=== PATIENT | male | born 1950 | race Caucasian/White ===

== ENCOUNTER → 2016-08-29 | Outpatient (CLI) | payer BC ==
[~2016-08-29] MED LIST: ASPEC325 PO; CLOP1TAB15 PO; CRS10 PO; DLC5 PO; Fish Oil; HYDC25 PO; LISI-725 PO; MULTIPLE VIT; NTRGSL/4 UT; ZNTT/150 PO; [UNRECOGNIZED DRUG - REMARK]; co q 10
[2016-08-29 11:31] LABS: ESTIMATED AVERAGE GLUCOSE 117 mg/dl; HA1C FLAG Normal (Normal)
[2016-08-29 11:41] LABS: ALT/SGPT 35 U/L (12-78); AST/SGOT 20 U/L (15-37); BLOOD UREA NITROGEN 18 mg/dl (7-18); BUN/CREATININE RATIO 17.8 (10-20); CALCIUM 8.7 mg/dl (8.5-10.1); CARBON DIOXIDE 29 mmol/L (21-32); CHLORIDE 104 mmol/L (98-107); CHOLESTEROL 145 mg/dl (0-200); GLUCOSE 106 mg/dl (70-99); POTASSIUM 4.2 mmol/L (3.5-5.1); SODIUM 139 mmol/L (136-145)
[2016-08-29 11:46] LABS: CHOLESTEROL/HDL RATIO 3.2; HDL CHOLESTEROL 46 mg/dl; LDL CHOLESTEROL CALCULATED 87 mg/dl; PROSTATE SPECIFIC ANTIGEN 0.313 ng/ml (0.000-4.000); TRIGLYCERIDES 62 mg/dl (0-150); VERY LOW DENSITY LIPOPROT CALC 12 mg/dl
== END | disposition home or self-care (01) ==
LOC: C.LABBC 07:33
PROVIDERS: ATTEND Internal Medicine Cardiovascular Disease
DX: Z11.59 Encounter for screening for other viral diseases (principal); Z12.5 Encounter for screening for malignant neoplasm of prostate; E78.5 Hyperlipidemia, unspecified; R73.01 Impaired fasting glucose; I10 Essential (primary) hypertension

== ENCOUNTER → 2017-03-08 | Outpatient (CLI) | payer BC | END | disposition home or self-care (01) | LOC: C.LABBC 09:19 | PROVIDERS: ATTEND Internal Medicine Cardiovascular Disease | DX: E78.5 Hyperlipidemia, unspecified (principal) ==

== ENCOUNTER → 2017-08-27 | Outpatient (CLI) | payer OTHER ==
[~2017-08-27] MED LIST changes: +RANI150T85 PO; -ZNTT/150 PO
[2017-08-27 11:33] LABS: ALT/SGPT 37 U/L (12-78); AST/SGOT 23 U/L (15-37); BLOOD UREA NITROGEN 16 mg/dl (7-18); CARBON DIOXIDE 29 mmol/L (21-32); CREATININE 0.95 mg/dl (0.60-1.40); GLUCOSE 112 mg/dl (70-99); SODIUM 137 mmol/L (136-145)
[2017-08-27 11:36] LABS: CHOLESTEROL 138 mg/dl (0-200); LDL CHOLESTEROL CALCULATED 76 mg/dl
== END | disposition home or self-care (01) ==
LOC: C.LABBC 07:12
PROVIDERS: ATTEND Internal Medicine Cardiovascular Disease
DX: E78.5 Hyperlipidemia, unspecified (principal); I10 Essential (primary) hypertension

== ENCOUNTER → 2017-12-18 | Outpatient (CLI) | payer OTHER ==
[2017-12-18 11:08] LABS: BASO % 0.6 %; BASO ABS # 0.03 K/uL (0-0.2); EOS % 2.5 %; EOS ABS # 0.13 K/uL (0-0.5); HEMATOCRIT 40.4 % (42-52); HEMOGLOBIN 14.2 g/dL (14.0-18.0); IG# 0.01 K/uL (0.00-0.02); LYMPH % 15.9 %; LYMPH ABS # 0.82 K/uL (1.2-3.4); MEAN CELL VOLUME 88.6 fL (80-100); MEAN CORPUSCULAR HEMOGLOBIN 31.1 pg (25-34); MEAN CORPUSCULAR HGB CONC 35.1 g/dl (32-36); MEAN PLATELET VOLUME 10.9 fL (7.4-10.4); MONO % 9.9 %; MONO ABS # 0.51 K/uL (0.11-0.59); NEUT % 70.9 %; NEUT ABS # 3.65 K/uL (1.4-6.5); PLATELET COUNT 174 K/uL (130-400); RED CELL DISTRIBUTION WIDTH CV 12.8 % (11.5-14.5); RED CELL DISTRIBUTION WIDTH SD 41.2 fL (36.4-46.3); WHITE BLOOD COUNT 5.15 K/uL (4.8-10.8)
[2017-12-18 12:12] LABS: HEMOGLOBIN A1C 5.8 % (4.5-5.6)
== END | disposition home or self-care (01) ==
LOC: C.LABBC 09:10
PROVIDERS: ATTEND Internal Medicine
DX: F52.8 Other sexual dysfunction not due to a substance or known physiological condition (principal); R73.01 Impaired fasting glucose; E78.5 Hyperlipidemia, unspecified

== ENCOUNTER 2017-12-29 18:39 | Inpatient (IN) | payer OTHER ==
[~2017-12-29] VITALS: Ht 177.8 cm; Wt 73.4 kg
[2017-12-29 19:27] LABS: BASO % 0.4 %; BASO ABS # 0.02 K/uL (0-0.2); EOS % 2.6 %; EOS ABS # 0.14 K/uL (0-0.5); HEMATOCRIT 40.6 % (42-52); HEMOGLOBIN 14.5 g/dL (14.0-18.0); IG# 0.01 K/uL (0.00-0.02); LYMPH % 18.5 %; LYMPH ABS # 1.01 K/uL (1.2-3.4); MEAN CELL VOLUME 87.5 fL (80-100); MEAN CORPUSCULAR HEMOGLOBIN 31.3 pg (25-34); MEAN CORPUSCULAR HGB CONC 35.7 g/dl (32-36); MEAN PLATELET VOLUME 10.5 fL (7.4-10.4); MONO % 10.1 %; MONO ABS # 0.55 K/uL (0.11-0.59); NEUT % 68.2 %; NEUT ABS # 3.74 K/uL (1.4-6.5); PLATELET COUNT 176 K/uL (130-400); RED CELL DISTRIBUTION WIDTH CV 12.5 % (11.5-14.5); RED CELL DISTRIBUTION WIDTH SD 40.1 fL (36.4-46.3); WHITE BLOOD COUNT 5.47 K/uL (4.8-10.8)
[2017-12-29] MEDS ORDERED: CARV12.52 PO (19:38)
[2017-12-29] MEDS ORDERED: HYDR25TA4 PO (19:41)
[2017-12-29] MEDS ORDERED: AMLO5TAB3 PO (19:42)
[2017-12-29] MEDS ORDERED: COEN1CAP37 PO (19:44)
[2017-12-29] MEDS ORDERED: ASCO500T16 PO (19:46)
[2017-12-29 19:47] LABS: BLOOD UREA NITROGEN 13 mg/dl (7-18); CALCIUM 9.2 mg/dl (8.5-10.1); CARBON DIOXIDE 27 mmol/L (21-32); CREATININE 0.98 mg/dl (0.60-1.40); GLUCOSE 116 mg/dl (70-99); POTASSIUM 3.8 mmol/L (3.5-5.1); SODIUM 134 mmol/L (136-145)
[2017-12-29] MEDS ORDERED: RESV1TAB PO (19:48)
[2017-12-29] MEDS ORDERED: CRS/10 PO (19:49)
[2017-12-29] MEDS ORDERED: ASPI81TA28 PO (19:50)
[2017-12-29] MEDS ORDERED: [UNRECOGNIZED DRUG - OTHER] PO (19:54)
[2017-12-29] MEDS ORDERED: CIRCUMIN (19:56)
[2017-12-29] MEDS ORDERED: MISC1TAB34 PO (19:57)
[2017-12-29] MEDS ORDERED: MISCCAP80 PO (19:59)
[2017-12-29] MEDS ORDERED: GADAVIST IV PRN (20:45)
--- NOTE | 2017-12-29 20:47 | DIAGNOSTIC IMAGING REPORT ---
Brain MRA HISTORY: slurred speech earlier, ?tia/stroke TECHNIQUE: 3-D [id number] MRA of the brain was performed without contrast. COMPARISON STUDY: None. FINDINGS: Visualized intracranial internal carotid arteries, distal vertebral arteries, and basilar artery are widely patent. There is no significant stenosis, occlusion, or aneurysm seen within the bilateral ACAs, MCAs, or maintenance director. Hypoplastic distal right vertebral artery. IMPRESSION: No significant stenosis, occlusion, or aneurysm within the [place]. Electronically signed by: Tee Faye M.D. 12/29/2017 8:45 PM Dictated Date/Time: 12/29/2017 8:39 PM
--- NOTE | 2017-12-29 21:31 | DIAGNOSTIC IMAGING REPORT ---
Brain MRI WITHOUT CONTRAST HISTORY: slurred speech earlier, ?tia/stroke TECHNIQUE: Multiplanar multisequence MRI of the brain was performed without the use of contrast. COMPARISON STUDY: None. FINDINGS: There is a small focus of restricted diffusion seen within the cortex of the left posterior temporal lobe. This is consistent with an acute infarct. There is associated small focus of cytotoxic edema at the area of infarct. No significant mass effect or midline shift. A few scattered punctate foci of T2 hyperintensity seen within the white matter suggestive of mild microvascular ischemic change. The midline structures are intact. The paranasal sinuses and mastoid air cells are clear. The major vascular flow-voids at the skull base are well-maintained. The ventricles are normal in size. No intracranial masses or hemorrhage identified. IMPRESSION: Small acute left posterior temporal lobe infarct. Electronically signed by: Tee Faye M.D. 12/29/2017 9:30 PM Dictated Date/Time: 12/29/2017 9:25 PM
--- NOTE | 2017-12-29 21:38 | DIAGNOSTIC IMAGING REPORT ---
NECK MRA HISTORY: slurred speech earlier, ?tia/stroke TECHNIQUE: [id number] and gadolinium-enhanced MRA of the neck was performed both before and after the intravenous administration of contrast. All measurements were calculated based on NASCET criteria. COMPARISON STUDY: None. FINDINGS: The aortic arch and proximal great vessels are widely patent. Bilateral common carotid and left vertebral arteries are widely patent. The right vertebral artery is hypoplastic and therefore suboptimally assessed but appears to be patent. Moderate right and mild left carotid bifurcation calcification. There is a focal area of approximately 70-80% stenosis within the proximal right internal carotid artery and a focal area of approximately 60-70 % stenosis within the proximal left internal carotid artery due to the atherosclerotic plaque. IMPRESSION: 1. Bilateral proximal internal carotid artery stenosis as described above, right greater than left. 2. No significant stenosis within the common carotid or vertebral arteries. Electronically signed by: Tee Faye M.D. 12/29/2017 9:37 PM Dictated Date/Time: 12/29/2017 9:31 PM
--- NOTE | 2017-12-29 21:41 | EMERGENCY ROOM VISIT NOTE ---
History Report prepared by Savi: Jacinda Ivey Under the Supervision of: Dr. Kaushik Vences M.D. First contact with patient: 18:47 Chief Complaint: TIA Stated Complaint: CONFUSSION History of Present Illness The patient is a 67 year old male who presents to the Emergency Room with complaints of a possible TIA that occurred this morning. 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 As he was talking with James, he felt like he was having difficulty "grasping things" and said some things "that didn't make sense". He states "I knew what I wanted to say, but I couldn't express it". The episode lasted for approximately 3 hours and started around 0730 this morning. The patient then drove around doing several errands early this afternoon since he felt better. He denies any numbness or tingling in his extremities. The patient denies any recent fevers or illnesses. He admits to a history of anxiety and states he took 1 mg of Ativan last night and woke up feeling fatigued this morning. He admits to a history of a previous [facility] and hypertension. He denies any recent headache or dizziness. Source of History: patient Onset: 0730 this morning Position: other (global) Timing: resolved Associated Symptoms: + fatigue, No fevers, No headache, No numbness (in arms or legs) Review of Systems See HPI for pertinent positives and negatives. A total of ten systems were reviewed and were otherwise negative. Past Medical & Surgical Medical Problems: (1) Anxiety Surgical Problems: (1) History of heart artery stent Social History Smoking Status: Never Smoker Alcohol Use: none Drug Use: none Marital Status: Housing Status: lives with family Occupation Status: employed Current/Historical Medications Scheduled Amlodipine (Norvasc), 5 MG PO DAILY Ascorbic Acid (Ascorbic Acid), 500 MG PO DAILY Aspirin (Aspirin Ec), 81 MG PO DAILY Carvedilol (Coreg), 12.5 MG PO BID Coenzyme Q10 (Ubidecarenone) (Co Q-10), 200 MG PO DAILY Hydrochlorothiazide (Hctz), 25 MG PO DAILY Lisinopril (Zestril), 20 MG PO BID Misc Natural Products (Curcumax Pro), 675 MG PO DAILY Probiotic Product (Probiotic), 1 CAP PO DAILY Ranitidine (Zantac), 150 MG PO BID Resveratrol-Quercetin (Resveratrol Plus), 200 MG PO HS Rosuvastatin Calcium (Crestor), 10 MG PO DAILY [[place]], 1,000 MG PO DAILY Allergies Coded Allergies: No Known Allergies (Unverified , 01/23/11) Physical Exam Vital Signs Date Time Temp Pulse Resp B/P (MAP) Pulse Ox O2 Delivery O2 Flow Rate FiO2 12/29/17 21:10 72 18 172/91 99 Room Air 12/29/17 19:00 99 Room Air 12/29/17 18:57 64 12/29/17 18:43 36.6 58 18 187/104 99 Physical Exam GENERAL: Awake, alert, well-appearing, in no distress HENT: Normocephalic, atraumatic. Oropharynx unremarkable. EYES: Normal conjunctiva. Sclera non-icteric. NECK: Supple. No nuchal rigidity. RESPIRATORY: Clear to auscultation. No wheezes. Normal respiratory effort. CARDIAC: Normal rate. Normal rhythm. Extremities warm and well perfused. GI: Soft, non-distended. No tenderness to palpation. No rebound or guarding. RECTAL: Deferred. MUSCULOSKELETAL: Atraumatic. Chest examination reveals no tenderness. LOWER EXTREMITIES: Calves are equal size bilaterally and non-tender. No edema NEURO: Normal sensorium. No sensory or motor deficits noted. No facial droop. No slurred speech. No pronator drift. NIH 0. SKIN: Warm and dry. No rash or jaundice noted. Medical Decision & Procedures ER Provider Diagnostic Interpretation: Radiology results as stated below per my review and radiologist interpretation: Brain MRI WITHOUT CONTRAST HISTORY: slurred speech earlier, ?tia/stroke TECHNIQUE: Multiplanar multisequence MRI of the brain was performed without the use of contrast. COMPARISON STUDY: None. FINDINGS: There is a small focus of restricted diffusion seen within the cortex of the left posterior temporal lobe. This is consistent with an acute infarct. There is associated small focus of cytotoxic edema at the area of infarct. No significant mass effect or midline shift. A few scattered punctate foci of T2 hyperintensity seen within the white matter suggestive of mild microvascular ischemic change. The midline structures are intact. The paranasal sinuses and mastoid air cells are clear. The major vascular flow-voids at the skull base are well-maintained. The ventricles are normal in size. No intracranial masses or hemorrhage identified. IMPRESSION: Small acute left posterior temporal lobe infarct. Electronically signed by: Tee Faye M.D. 12/29/2017 9:30 PM Brain MRA HISTORY: slurred speech earlier, ?tia/stroke TECHNIQUE: 3-D [id number] MRA of the brain was performed without contrast. COMPARISON STUDY: None. FINDINGS: Visualized intracranial internal carotid arteries, distal vertebral arteries, and basilar artery are widely patent. There is no significant stenosis, occlusion, or aneurysm seen within the bilateral ACAs, MCAs, or manager registration. Hypoplastic distal right vertebral artery. IMPRESSION: No significant stenosis, occlusion, or aneurysm within the [place]. Electronically signed by: Tee Faye M.D. 12/29/2017 8:45 PM NECK MRA HISTORY: slurred speech earlier, ?tia/stroke TECHNIQUE: [id number] and gadolinium-enhanced MRA of the neck was performed both before and after the intravenous administration of contrast. All measurements were calculated based on NASCET criteria. COMPARISON STUDY: None. FINDINGS: The aortic arch and proximal great vessels are widely patent. Bilateral common carotid and left vertebral arteries are widely patent. The right vertebral artery is hypoplastic and therefore suboptimally assessed but appears to be patent. Moderate right and mild left carotid bifurcation calcification. There is a focal area of approximately 70-80% stenosis within the proximal right internal carotid artery and a focal area of approximately 60-70 % stenosis within the proximal left internal carotid artery due to the atherosclerotic plaque. IMPRESSION: 1. Bilateral proximal internal carotid artery stenosis as described above, right greater than left. 2. No significant stenosis within the common carotid or vertebral arteries. Electronically signed by: Tee Faye M.D. 12/29/2017 9:37 PM Laboratory Results 12/29/17 19:00 Red Blood Count 4.64, Mean Corpuscular Volume 87.5, Mean Corpuscular Hemoglobin 31.3, Mean Corpuscular Hemoglobin Concent 35.7, Mean Platelet Volume 10.5, Neutrophils (%) (Auto) 68.2, Lymphocytes (%) (Auto) 18.5, Monocytes (%) (Auto) 10.1, Eosinophils (%) (Auto) 2.6, Basophils (%) (Auto) 0.4, Neutrophils # (Auto ) 3.74, Lymphocytes # (Auto) 1.01, Monocytes # (Auto) 0.55, Eosinophils # (Auto ) 0.14, Basophils # (Auto) 0.02 12/29/17 19:00 Test 12/29/17 19:00 12/29/17 19:16 White Blood Count 5.47 K/uL (4.8-10.8) Red Blood Count 4.64 M/uL (4.7-6.1) Hemoglobin 14.5 g/dL (14.0-18.0) Hematocrit 40.6 % (42-52) Mean Corpuscular Volume 87.5 fL (80-100) Mean Corpuscular Hemoglobin 31.3 pg (25-34) Mean Corpuscular Hemoglobin Concent 35.7 g/dl (32-36) Platelet Count 176 K/uL (130-400) Mean Platelet Volume 10.5 fL (7.4-10.4) Neutrophils (%) (Auto) 68.2 % Lymphocytes (%) (Auto) 18.5 % Monocytes (%) (Auto) 10.1 % Eosinophils (%) (Auto) 2.6 % Basophils (%) (Auto) 0.4 % Neutrophils # (Auto) 3.74 K/uL (1.4-6.5) Lymphocytes # (Auto) 1.01 K/uL (1.2-3.4) Monocytes # (Auto) 0.55 K/uL (0.11-0.59) Eosinophils # (Auto) 0.14 K/uL (0-0.5) Basophils # (Auto) 0.02 K/uL (0-0.2) RDW Standard Deviation 40.1 fL (36.4-46.3) RDW Coefficient of Variation 12.5 % (11.5-14.5) Immature Granulocyte % (Auto) 0.2 % Immature Granulocyte # (Auto) 0.01 K/uL (0.00-0.02) Prothrombin Time 10.3 SECONDS (9.0-12.0) Prothromb Time International Ratio 1.0 (0.9-1.1) Activated Partial Thromboplast Time 22.0 SECONDS (21.0-31.0) Partial Thromboplastin Ratio 0.8 Anion Gap 7.0 mmol/L (3-11) Est Creatinine Clear Calc Drug Dose 76.6 ml/min Estimated GFR () 92.7 Estimated GFR (Non- 80.0 BUN/Creatinine Ratio 13.3 (10-20) Calcium Level 9.2 mg/dl (8.5-10.1) Magnesium Level 1.9 mg/dl (1.8-2.4) Total Creatine Kinase 159 U/L (39-308) Troponin I < 0.015 ng/ml (0-0.045) Bedside Glucose 120 mg/dl (70-99) Laboratory results reviewed by me ECG Per My Interpretation Indication: weakness Rate (beats per minute): 63 Rhythm: normal sinus Findings: RBBB (incomplete RBBB), other (No ST elevation) Comparison ECG Date: Improved T-wave abnormality compared to EKG from July 19, 2011 ED Course 1846: The patient was evaluated in room A10. A complete history and physical exam was performed. 2134: I discussed with the patient MRI findings of stroke and my recommendation he remain in the hospital for further evaluation and management. He verbalized complete understanding and agreement. 2139: [facility] the [facility] The patient will be further evaluated. Medical Decision Triage Nursing notes reviewed. The patient's presentation and history were concerning for weakness. Differential diagnosis: Etiologies such as metabolic, infection, hypo/hyperglycemia, electrolyte abnormalities, cardiac sources, intracerebral event, toxicologic, neurologic, as well as others were entertained. 67-year-old gentleman who presents here today after dysarthria and aphasia this morning lasting approximately 3 hours. No other neurological complaint. At baseline now. Took some Ativan last night for sleep, but woke up fine this morning. Again no neurological deficits at this time. Already on aspirin. Concerns for possible TIA. Given lack of symptoms not a TPA candidate. Not a stroke alert. Given resolution of symptoms MRI and needed. MRA without vessel occlusion. MRI with small left posterior temporal stroke likely the cause of his early dysphasia/aphasia. Discussed with the hospitalist and the patient these results. Will admit. Already takes aspirin. Again no deficits at this time. Medication Reconcilliation Current Medication List: was personally reviewed by me Blood Pressure Screening Patient's blood pressure: Elevated blood pressure Blood pressure disposition: Referred to PCP Consults Time Called: 2139 [facility] Returned Call: 2139 I discussed the patients case with Odette Leavitt Hospitalist. The patient will be further evaluated. Impression Primary Impression: Stroke Scribe Attestation The scribe's documentation has been prepared under my direction and personally reviewed by me in its entirety. I confirm that the note above accurately reflects all work, treatment, procedures, and medical decision making performed by me. Departure Information Dispostion Being Evaluated By Hospitalist Referrals Frederic Lira M.D. (PCP) Patient Instructions My [facility] Problem Qualifiers Primary Impression: Stroke CVA mechanism: unspecified Qualified Codes: I63.9 - Cerebral infarction, unspecified
--- NOTE | 2017-12-29 21:43 | History and Physical ---
History & Physical Date & Time of Service: Dec 29, 2017 at 21:41 Chief Complaint: Confussion Primary Care Physician: Frederic Lira M.D. History of Present Illness Source: patient, family Mr. Carroll is a pleasant 67yo male with history of HTN, CAD s/p MS in 01/2011 with stent placement and anxiety presenting with stroke-like symptoms. Patient states that at 0730 today he was at work at a [employer]. He states that he was "unable to pull his thoughts together and speak clearly". He knew what he wanted to say but was having some difficulty word finding and expressing himself. Also with some difficulty hearing, unsure of which ear. He was with a coworker at this time who denies patient having slurred speech, facial droop. 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 He states that his symptoms improved somewhat by 0815 and resolved completely by approximately 11:30AM. Patient denies headache, visual disturbance, numbness/tingling/weakness, dizziness, LOC. Denies chest pain, cough, sob, abdominal pain, n/v/d/c. He states that he was very tired when he woke up this morning but that is not entirely unusual. is at bedside and states that the patient is more anxious than usual and still seems like his thoughts are a little scattered. No additional complaints at this time. ER Course: MRI brain, MRA head and neck Past Medical/Surgical History Medical Problems: CAD s/p MS in 01/2011 s/p DOROTHEA to LAD by Dr. Shelley Hypertension Anxiety GERD BPH Surgical Problems: (1) History of heart artery stent (DOROTHEA to LAD 01/[address] Shelley) Family History FH: CAD (coronary artery disease) FH: dementia Social History active and independent in ADLs. Patient is physically active, uses treadmill appx 3-4 days/week and does strength training as well Smoking Status: Former Smoker Smokeless Tobacco Use: No Alcohol Use: none Drug Use: none Marital Status: Housing status: lives with family Occupational Status: employed Immunizations History of Influenza Vaccine: No History of Tetanus Vaccine?: No History of Pneumococcal: No History of Hepatitis B Vaccine: No Allergies Coded Allergies: No Known Allergies (Unverified , 01/23/11) Home Medications Scheduled Amlodipine (Norvasc), 5 MG PO DAILY Ascorbic Acid (Ascorbic Acid), 500 MG PO DAILY Aspirin (Aspirin Ec), 81 MG PO DAILY Carvedilol (Coreg), 12.5 MG PO BID Coenzyme Q10 (Ubidecarenone) (Co Q-10), 200 MG PO DAILY Hydrochlorothiazide (Hctz), 25 MG PO DAILY Lisinopril (Zestril), 20 MG PO BID Misc Natural Products (Curcumax Pro), 675 MG PO DAILY Probiotic Product (Probiotic), 1 CAP PO DAILY Ranitidine (Zantac), 150 MG PO BID Resveratrol-Quercetin (Resveratrol Plus), 200 MG PO HS Rosuvastatin Calcium (Crestor), 10 MG PO DAILY [[place]], 1,000 MG PO DAILY Review of Systems Constitutional: No fever, No chills, No sweats Eyes: No worsening of vision, No diplopia ENT: No hearing loss, No trouble swallowing Respiratory: No cough, No sputum, No shortness of breath Cardiovascular: No chest pain, No palpitations Abdomen: No pain, No nausea, No vomiting, No diarrhea, No constipation Musculoskeletal: No joint pain Genitourinary - Male: No hematuria, No dysuria Neurologic: No paralysis, No weakness, No numbness/tingling, No vertigo, No balance problems Psychiatric: + anxiety Endocrine: + fatigue Hematologic / Lymphatic: No abnormal bleeding/bruising Integumentary: No rash Physical Exam Vital Signs Date Time Temp Pulse Resp B/P (MAP) Pulse Ox O2 Delivery O2 Flow Rate FiO2 12/29/17 21:10 72 18 172/91 99 Room Air 12/29/17 19:00 99 Room Air 12/29/17 18:57 64 12/29/17 18:43 36.6 58 18 187/104 99 General: patient resting comfortably in bed, NAD, AA&O x 4, appears slightly anxious Skin: warm, dry, intact, no rashes or lesions HEENT: NC/AT, PERRL, EOMI, anicteric sclera, conjunctiva without injection, nares patent, moist mucus membranes, no oropharyngeal lesions, neck supple, trachea midline, no thyromegaly, no LAD Heart: +S1/S2, regular, no m/r/g Lungs: equal air entry bilaterally, no rales/rhonchi/wheezes Abdomen: soft, NT/ND, no masses/organomegaly/ascites Extremities: warm, well perfused, no clubbing/cyanosis or edema, 2+ palpable pulses in UE/LE bilaterally Neuro: Patient AA&O x 4, speech clear and fluent, no facial droop. CN II-XII grossly intact Sensation to light touch intact in UE/LE bilaterally MS 5/5 in UE/LE bilaterally, no deficits noted Coordination intact UE/LE with finger to nose and heel to melchor Gait intact Diagnostics Laboratory Results Results Past 24 Hours Test 12/29/17 19:00 12/29/17 19:16 Range/Units White Blood Count 5.47 4.8-10.8 K/uL Red Blood Count 4.64 4.7-6.1 M/uL Hemoglobin 14.5 14.0-18.0 g/dL Hematocrit 40.6 42-52 % Mean Corpuscular Volume 87.5 80-100 fL Mean Corpuscular Hemoglobin 31.3 25-34 pg Mean Corpuscular Hemoglobin Concent 35.7 32-36 g/dl Platelet Count 176 130-400 K/uL Mean Platelet Volume 10.5 7.4-10.4 fL Neutrophils (%) (Auto) 68.2 % Lymphocytes (%) (Auto) 18.5 % Monocytes (%) (Auto) 10.1 % Eosinophils (%) (Auto) 2.6 % Basophils (%) (Auto) 0.4 % Neutrophils # (Auto) 3.74 1.4-6.5 K/uL Lymphocytes # (Auto) 1.01 1.2-3.4 K/uL Monocytes # (Auto) 0.55 0.11-0.59 K/uL Eosinophils # (Auto) 0.14 0-0.5 K/uL Basophils # (Auto) 0.02 0-0.2 K/uL RDW Standard Deviation 40.1 36.4-46.3 fL RDW Coefficient of Variation 12.5 11.5-14.5 % Immature Granulocyte % (Auto) 0.2 % Immature Granulocyte # (Auto) 0.01 0.00-0.02 K/uL Prothrombin Time 10.3 9.0-12.0 SECONDS Prothromb Time International Ratio 1.0 0.9-1.1 Activated Partial Thromboplast Time 22.0 21.0-31.0 SECONDS Partial Thromboplastin Ratio 0.8 Sodium Level 134 136-145 mmol/L Potassium Level 3.8 3.5-5.1 mmol/L Chloride Level 100 98-107 mmol/L Carbon Dioxide Level 27 21-32 mmol/L Anion Gap 7.0 3-11 mmol/L Blood Urea Nitrogen 13 7-18 mg/dl Creatinine 0.98 0.60-1.40 mg/dl Est Creatinine Clear Calc Drug Dose 76.6 ml/min Estimated GFR () 92.7 Estimated GFR (Non- 80.0 BUN/Creatinine Ratio 13.3 10-20 Random Glucose 116 70-99 mg/dl Calcium Level 9.2 8.5-10.1 mg/dl Magnesium Level 1.9 1.8-2.4 mg/dl Total Creatine Kinase 159 39-308 U/L Troponin I < 0.015 0-0.045 ng/ml Bedside Glucose 120 70-99 mg/dl Diagnostic Radiology Brain MRI WITHOUT CONTRAST HISTORY: slurred speech earlier, ?tia/stroke TECHNIQUE: Multiplanar multisequence MRI of the brain was performed without the use of contrast. COMPARISON STUDY: None. FINDINGS: There is a small focus of restricted diffusion seen within the cortex of the left posterior temporal lobe. This is consistent with an acute infarct. There is associated small focus of cytotoxic edema at the area of infarct. No significant mass effect or midline shift. A few scattered punctate foci of T2 hyperintensity seen within the white matter suggestive of mild microvascular ischemic change. The midline structures are intact. The paranasal sinuses and mastoid air cells are clear. The major vascular flow-voids at the skull base are well-maintained. The ventricles are normal in size. No intracranial masses or hemorrhage identified. IMPRESSION: Small acute left posterior temporal lobe infarct. Electronically signed by: Tee Faye M.D. 12/29/2017 9:30 PM Brain MRA HISTORY: slurred speech earlier, ?tia/stroke TECHNIQUE: 3-D [id number] MRA of the brain was performed without contrast. COMPARISON STUDY: None. FINDINGS: Visualized intracranial internal carotid arteries, distal vertebral arteries, and basilar artery are widely patent. There is no significant stenosis, occlusion, or aneurysm seen within the bilateral ACAs, MCAs, or supervisor home energy consultant. Hypoplastic distal right vertebral artery. IMPRESSION: No significant stenosis, occlusion, or aneurysm within the [place]. Electronically signed by: Tee Faye M.D. 12/29/2017 8:45 PM Dictated Date/Time: 12/29/2017 8:39 PM EKG The study shows NSR at 63bpm, normal axis and intervals, no acute evidence of ischemia Impression Assessment and Plan 67yo male with history of HTN, CAD s/p stent presenting with 3-4 hours of aphasia now resolved found with small acute left posterior temporal ischemic CVA 1. Ischemic CVA - patient with history of HTN, CAD. Presently symptoms have resolved per patient, neurologically intact -Admit to medical floor with telemetry -Neuro checks q 4 hours -Permissive hypertension -Check 2D echocardiogram with bubble study -Check HgAIC, fasting lipids -Neurology consultation- appreciate assistance with this case -PT/OT/Speech evaluation - appreciate assistance with this case -ASA 325mg po x 1 dose now then 81mg po daily. Patient may benefit from treatment with Aggrenox. Will defer to Neuro recommendations -Increase Crestor to 40mg po daily 2. CAD s/p DOROTHEA [place] LAD [place] [address] Shelley - patient presently CP free. EKG with no evidence of ischemia. Troponin x 1 negative -Telemetry monitoring as above -Continue ASA daily -Increase Crestor to 40mg po daily -Hold Carvedilol and Lisinopril now to allow for permissive hypertension. May resume tomorrow 3. Hypertension - patient presently hypertensive at 172/91 -Permissive hypertensin -Holding Amlodipine, Carvedilol, HCTZ and Lisinopril for now 4. GERD - stable, chronic -Continue Ranitidine 150mg po BID 5. F/E/N - Heplock. Monitor electrolytes and replete as needed, Na mildly low at 134. AHA diet as tolerated after nursing swallow evaluation complete. 6. Ppx - SCDs to bilateral LEs 7. Code - full per discussion with patient 8. Dispo - admit to telemetry Resuscitation Status FULL VTE Prophylaxis Will order VTE Prophylaxis: Yes
[2017-12-29] MEDS ORDERED: ROSUVASTATIN CALCIUM 20 MG TAB PO ONE (22:15)
[2017-12-29] MEDS ORDERED: ONDANSETRON INJ 2 MG/ML 2 ML VIAL IV PRN (22:15)
[2017-12-29] MEDS ORDERED: ACETAMINOPHEN 325 MG TAB PO PRN (22:15)
[2017-12-29] MEDS ORDERED: ASPIRIN/ALUM/MAGNES/CAL CARB 325 MG TAB PO ONE (22:15)
[2017-12-29] MEDS ORDERED: PHARMACIST DISCHARGE MED REC CONSULT PRN (22:15)
[2017-12-29] MEDS ORDERED: RANITIDINE HCL 150 MG TAB PO ONE (22:15)
[2017-12-29 23:36] VITALS: BP 151/89; PULSE 56; TEMP 36.9; O2SAT 95; Ht 177.8 cm; Wt 73.4 kg
[2017-12-30 04:12] VITALS: BP 107/66; PULSE 50; TEMP 36.6; O2SAT 98
[2017-12-30 06:05] LABS: HEMOGLOBIN A1C 5.9 % (4.5-5.6)
[2017-12-30 07:16] LABS: BASO % 0.6 %; BASO ABS # 0.03 K/uL (0-0.2); EOS % 3.4 %; EOS ABS # 0.18 K/uL (0-0.5); HEMATOCRIT 40.9 % (42-52); HEMOGLOBIN 14.4 g/dL (14.0-18.0); IG# 0.02 K/uL (0.00-0.02); LYMPH % 24.7 %; LYMPH ABS # 1.32 K/uL (1.2-3.4); MEAN CELL VOLUME 88.1 fL (80-100); MEAN CORPUSCULAR HGB CONC 35.2 g/dl (32-36); MEAN PLATELET VOLUME 10.1 fL (7.4-10.4); MONO ABS # 0.43 K/uL (0.11-0.59); NEUT % 62.9 %; NEUT ABS # 3.37 K/uL (1.4-6.5); PLATELET COUNT 160 K/uL (130-400); RED CELL DISTRIBUTION WIDTH CV 12.6 % (11.5-14.5); RED CELL DISTRIBUTION WIDTH SD 40.5 fL (36.4-46.3); WHITE BLOOD COUNT 5.35 K/uL (4.8-10.8)
[2017-12-30 07:52] LABS: CALCIUM 8.7 mg/dl (8.5-10.1); CREATININE 0.9 mg/dl (0.60-1.40); POTASSIUM 3.5 mmol/L (3.5-5.1)
[2017-12-30 08:00] VITALS: BP 123/81; PULSE 88; TEMP 36.4; O2SAT 98
--- NOTE | 2017-12-30 08:44 | ECHOCARDIOGRAM REPORT ---
*NOTICE TO RECEIVING DEMOCRAT AGENCY This information is strictly Confidential and protected under [place] law. [place] law prohibits you from making any further disclosure of this information unless further disclosure is expressly permitted by the written consent of the person to whom it pertains or is authorized by law. A general authorization for the release of medical or other information is not sufficient for this purpose. Hospital accepts no responsibility if the information is made available to any other person, INCLUDING THE PATIENT. Interpretation Summary * Name: DOREEN SEGURA Study Date: 12/30/2017 06:23 AM BP: 107/66 mmHg * Patient Location: C.2T\S\E219\S\1 HR: 50 * : 1950 (M/d/yyyy) Gender: Male Height: 70 in * Age: 67 yrs Ethnicity: CA Weight: 167 lb * Ordering Physician: Mireya Mann * Performed By: Oly Manzano RDCS * * Reason For Study: STROKE * BSA: 1.9 m2 * -- Conclusions -- * Left ventricular systolic function is low normal. * Grade I diastolic dysfunction, (abnormal relaxation pattern). * There are regional wall motion abnormalities as specified. * Compared to a study from 2011, there is little change Procedure Details * A complete two-dimensional transthoracic echocardiogram was performed (2D, M-mode, Doppler and color flow Doppler). * The study was technically limited. * The study was technically difficult. * There were technical limitations due to patient'sPoor acoustic windows secondary to severe lung disease. * A saline contrast injection was performed to assess for cardiac shunting. * The injection was performed through an intravenous line in the right arm. * A total of 20 cc of agitated saline was given. * A contrast injection of Definity was performed to improve assessment of LV function. * Contrast was injected into an intravenous site in the right arm. * Lot # [id number] of Definity utilized for procedure. * Expiration date 12/04. Left Ventricle * The left ventricle is grossly normal size. * There is normal left ventricular wall thickness. * Ejection Fraction = 50-55%. * Left ventricular systolic function is low normal. * Grade I diastolic dysfunction, (abnormal relaxation pattern). * There are regional wall motion abnormalities as specified. * Severe septal and apical septal hypokinesis. Distal posterior hypokinesis. Right Ventricle * The right ventricle is normal in size and function. Atria * The left atrial size is normal. * Right atrial size is normal. Mitral Valve * The mitral valve is grossly normal. * Significant mitral regurgitation is absent. Tricuspid Valve * The tricuspid valve is not well visualized, but is grossly normal. * Significant tricuspid regurgitation is absent. Aortic Valve * The aortic valve is not well visualized. * No hemodynamically significant valvular aortic stenosis. * There is no significant aortic regurgitation. Pulmonic Valve * The pulmonic valve is not well visualized. Pericardium/Pleural * There is no pericardial effusion. MMode 2D Measurements and Calculations ACS 1.2 cm LVOT diam 1.5 cm LVOT area 1.8 cm\S\2 LVAd ap4 35.4 cm\S\2 LVLd ap4 8.7 cm EDV(MOD-sp4) 118.2 ml EDV(sp4-el) 122.2 ml LVAs ap4 22.7 cm\S\2 LVLs ap4 7.5 cm ESV(MOD-sp4) 55.2 ml ESV(sp4-el) 58.3 ml EF(MOD-sp4) 53.3 % EF(sp4-el) 52.3 % LVAd ap2 33.1 cm\S\2 LVLd ap2 8.0 cm EDV(MOD-sp2) 112.6 ml EDV(sp2-el) 117.0 ml LVAs ap2 19.5 cm\S\2 LVLs ap2 6.4 cm ESV(MOD-sp2) 51.4 ml ESV(sp2-el) 50.4 ml EF(MOD-sp2) 54.4 % EF(sp2-el) 56.9 % LVLd %diff -9.60 % EDV(MOD-bp) 116.7 ml LVLs %diff -16.95 % ESV(MOD-bp) 54.5 ml EF(MOD-bp) 53.2 % SV(MOD-sp4) 63.0 ml SI(MOD-sp4) 32.6 ml/m\S\2 SV(MOD-sp2) 61.2 ml SI(MOD-sp2) 31.7 ml/m\S\2 SV(MOD-bp) 62.1 ml SI(MOD-bp) 32.1 ml/m\S\2 SV(sp4-el) 63.9 ml SI(sp4-el) 33.0 ml/m\S\2 SV(sp2-el) 66.6 ml SI(sp2-el) 34.5 ml/m\S\2 Doppler Measurements and Calculations MV E max macie 65.2 cm/sec MV A max macie 85.2 cm/sec MV E/A 0.77 MV dec time 0.19 sec Ao V2 max 96.6 cm/sec Ao max PG 3.7 mmHg Ao max PG (full) 0.72 mmHg MANDI(V,A) 1.7 cm\S\2 MANDI(V,D) 1.7 cm\S\2 LV V1 max PG 3.0 mmHg LV V1 max 86.8 cm/sec PA V2 max 55.5 cm/sec PA max PG 1.2 mmHg
[2017-12-30] MEDS ORDERED: ASCORBIC ACID 500 MG TAB PO SCH (09:00)
[2017-12-30] MEDS ORDERED: RANITIDINE HCL 150 MG TAB PO SCH (09:00)
[2017-12-30] MEDS ORDERED: ASPIRIN 81 MG ECTAB PO SCH ×2 (09:00)
[2017-12-30] MEDS ORDERED: SODIUM CHLORIDE 0.9% 500ML 500 ML IV SCH (09:15)
--- NOTE | 2017-12-30 09:19 | Neurology Consultation ---
Neurology Consultation Date of Consultation: Dec 30, 2017. Attending Physician: Mireya Mann D.O. Primary Care Physician: Frederic Lira M.D. Reason for Consultation: Patient is a 67-year-old, was asked to see the request of Dr. Mann, for neurologic consultation regarding stroke. History of Present Illness Source: patient, caregiver, clinic records, hospital records Patient has a history of hypertension for at least 8 years. He has coronary disease and had an NE in January of 2011. He had a stent placed. A carotid ultrasound in March of 2015 showed a less than 50 percent stenosis in the left internal carotid artery and a 50-69 percent stenosis in the right internal carotid artery. His most recent echocardiogram was in August 2017 and showed ejection fraction of 35-40 percent. There was some regional wall abnormalities noted in the lad territory and there was no change overall compared to February of 2016. He has been doing well with no significant issues. He has some anxiety and occasionally takes Ativan, although has not taken any for several weeks. Because he wanted a good night's sleep he took 1 milligram of lorazepam before bed on December 28. When he got up on December 29 he felt somewhat tired ( which is not unusual when he does this). 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 When he listened to his co-worker speak, he had some comprehension issues but for the most part could understand. It really was more getting the right words out and he would say different words that he meant to. He did not have slurred speech, headache, vision problems, swallowing issues, weakness, numbness, balance problems, or facial droop. He felt that he had a little confusion but he was clear enough to do his work. By 3390-9306 hours he felt somewhat better although he still had some word- finding difficulties. He ate around 0900 and did well. By 5621-5652 hours he was much better but had some rare misuse of words/word-finding difficulty. He was not confused. He had some lunch in the early afternoon and noticed after 8th initiating that he was completely back to baseline. He drove and finished his work for the day and then came to the emergency room. He stated that he knew we should of gone to the emergency room at the beginning but he felt that he had to get his work done before he left. At 1843 hours, temperature was 36.6, pulse 58 and regular, respiratory rate 18, blood pressure 187/104, and O2 saturation 99 percent. Neurologic examination was unremarkable, his speech was normal, and his NIH stroke scale was 0 MRI of the brain showed a small acute left posterior temporal CVA. He has no significant atrophy and some mild old nonspecific small vessel ischemic changes. I reviewed the film with the radiologist. MR angiography of the head was unremarkable. MR angiography of the neck showed a 70 percent stenosis at the proximal right internal carotid artery with ulcerated plaque. There was 60 70 percent stenosis on the left internal carotid artery at the origin. I reviewed these with the radiologist as well. CBC, Chem profile, and CK were unremarkable. Glucose was 120 and hemoglobin A1c was 5.9. Fasting lipid panel is pending. He feels quite normal this morning with no significant symptomatology. Past Medical/Surgical History Medical Problems: (1) Stroke Status: Acute Hypertension Coronary artery disease Status post NE, January 2011 Anxiety disorder, nonspecific Gastroesophageal reflux disease BPH Dyslipidemia Post coronary artery stent placement Tonsillectomy Family History Mother is alive at age 92 and has senile dementia of the Alzheimer's type. She had an NE in the past. Father age 62 and had NE at age 40 Social History The patient smoked 1 pack of cigarettes per day and quit in the late 70s in his late 20s. He has not used tobacco products since. He does not consume alcohol. 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 He is active physically and does resistance and aerobic exercise regularly. Smoking Status: Former smoker Smokeless Tobacco Use: No Alcohol Use: none Drug Use: none Marital Status: Housing Status: lives with family Occupation Status: employed Allergies Coded Allergies: No Known Allergies (Unverified , 01/23/11) Current Inpatient Medications Current Inpatient Medications Medications (Trade) Dose Ordered Sig/Allen Route Start Time Stop Time Status Last Admin Dose Admin Gadobutrol (Gadavist) 7.5 mmol UD PRN IV 12/29/17 20:45 01/02/18 20:44 Acetaminophen (Tylenol Tab) 650 mg Q4H PRN PO 12/29/17 22:15 01/28/18 22:14 Ondansetron HCl (Zofran Inj) 4 mg Q6H PRN IV 12/29/17 22:15 01/28/18 22:14 Aspirin (Ecotrin Tab) 81 mg QAM PO 12/30/17 09:00 01/29/18 08:59 Miscellaneous Information (Pharmacist Discharge Med Rec Consult) 1 ea UD PRN N/A 12/29/17 22:15 01/28/18 22:14 Ascorbic Acid (Vitamin C Tab) 500 mg DAILY PO 12/30/17 09:00 01/29/18 08:59 Ranitidine HCl (zANTac TAB) 150 mg BID PO 12/30/17 09:00 01/29/18 08:59 Rosuvastatin Calcium (Crestor Tab) 40 mg DAILY@2100 PO 12/30/17 21:00 01/29/18 20:59 Review of Systems Constitutional: No weakness, No fatigue Eyes: No worsening of vision, No diplopia ENT: + hearing loss, No tinnitus, No trouble swallowing Respiratory: No cough, No shortness of breath Cardiovascular: No chest pain, No palpitations Abdomen: No pain, No nausea Musculoskeletal: No joint pain, No muscle pain Genitourinary - Male: No dysuria, No urinary incontinence Neurologic: No memory loss, No weakness, No numbness/tingling, No vertigo, No balance problems Psychiatric: No depression symptoms, No anxiety Endocrine: No fatigue Hematologic / Lymphatic: No abnormal bleeding/bruising Integumentary: No rash Allergic / Immunologic: No hives Physical Exam Vital Signs (Past 24 Hrs): Date Time Temp Pulse Resp B/P (MAP) Pulse Ox O2 Delivery O2 Flow Rate FiO2 12/30/17 04:12 36.6 50 18 107/66 (80) 98 Room Air 12/30/17 00:00 Room Air 12/29/17 23:36 36.9 56 16 151/89 95 Room Air 12/29/17 22:53 54 12/29/17 22:43 58 18 143/94 99 12/29/17 21:10 72 18 172/91 99 Room Air 12/29/17 19:00 99 Room Air 12/29/17 18:57 64 12/29/17 18:43 36.6 58 18 187/104 99 Patient is left-handed. The patient is awake and alert. Speech is normal without aphasia or dysarthria. He can repeat test phrases, read, do calculations and has no receptive or expressive aphasia currently. Mentation and thought processes are intact with full orientation and normal fund of knowledge. Mood and affect are normal and appropriate. Appearance and grooming are normal. Long and short-term memory are intact. The discs are sharp with positive venous pulsations. There are no exudates, hemorrhages, or blood vessel changes seen. Pupils are 4mm bilaterally and reactive to light. Extraocular eye muscles are intact without nystagmus. Visual acuity and visual hauser seem normal grossly to confrontation. There are no deficits to sensation of the face bilaterally. Corneal reflexes are positive bilaterally. Facial strength and symmetry is normal bilaterally. Hearing seems intact grossly to voice and finger rub. Palate moves well without asymmetry. There is normal sternocleidomastoid and trapezius strength bilaterally. Tongue is midline with good strength bilaterally. Neck is with full range of motion without discomfort. There is a right carotid bruit noted but not a left. There are no cranial or ocular bruits. Heart is without murmur. Cervical, thoracic, and lumbar spine are nontender to palpation. Gait is normal. There is good arm swing, turn, stance, and balance. With outstretched arms there is no drift. There are no resting, postural, or action tremors. There is no ataxia with [id number] testing. There is good facility in the hands. There are no abnormal involuntary movements noted. Motor strength is 5/5 diffusely in the arms bilaterally including deltoids, biceps, brachioradialis, wrist flexors and extensors, cyanide case hardener, and intrinsic hand muscles. Motor strength is 5/5 diffusely in the legs bilaterally including hip flexors, quadriceps, hamstring, gastrocnemius, tibialis anterior, tibialis posterior, and peroneii muscles bilaterally. Toe extensors are normal and there is good bulk in the extensor digitorum brevis muscle bilaterally. The limbs have good tone without rigidity or spasticity, and there is no atrophy noted. Muscle bulk is normal, there is no tenderness, no myotonia noted to percussion, and no fasciculations seen. Sensory examination is intact to pin and touch throughout all four limbs. Reflexes are 2/4 in the biceps, triceps, brachioradialis, quadriceps, and Achilles tendons bilaterally. Toes are downgoing with plantar stimulation bilaterally. Peripheral pulses are present and of normal quality distally in all four limbs. There is no peripheral edema noted. Laboratory Results Past 24 Hours: 12/30/17 07:05 Red Blood Count 4.64, Mean Corpuscular Volume 88.1, Mean Corpuscular Hemoglobin 31.0, Mean Corpuscular Hemoglobin Concent 35.2, Mean Platelet Volume 10.1, Neutrophils (%) (Auto) 62.9, Lymphocytes (%) (Auto) 24.7, Monocytes (%) (Auto) 8.0, Eosinophils (%) (Auto) 3.4, Basophils (%) (Auto) 0.6, Neutrophils # (Auto) 3.37, Lymphocytes # (Auto) 1.32, Monocytes # (Auto) 0.43, Eosinophils # (Auto) 0.18, Basophils # (Auto) 0.03 12/30/17 07:05 Test 12/29/17 19:00 12/29/17 19:16 12/30/17 07:05 Prothrombin Time 10.3 SECONDS (9.0-12.0) Prothromb Time International Ratio 1.0 (0.9-1.1) Activated Partial Thromboplast Time 22.0 SECONDS (21.0-31.0) Partial Thromboplastin Ratio 0.8 Estimated Average Glucose 123 mg/dl Hemoglobin A1c 5.9 % (4.5-5.6) Phosphorus Level 3.0 mg/dl (2.5-4.9) Magnesium Level 1.9 mg/dl (1.8-2.4) Total Creatine Kinase 159 U/L (39-308) Troponin I < 0.015 ng/ml (0-0.045) Bedside Glucose 120 mg/dl (70-99) White Blood Count 5.35 K/uL (4.8-10.8) Red Blood Count 4.64 M/uL (4.7-6.1) Hemoglobin 14.4 g/dL (14.0-18.0) Hematocrit 40.9 % (42-52) Mean Corpuscular Volume 88.1 fL (80-100) Mean Corpuscular Hemoglobin 31.0 pg (25-34) Mean Corpuscular Hemoglobin Concent 35.2 g/dl (32-36) Platelet Count 160 K/uL (130-400) Mean Platelet Volume 10.1 fL (7.4-10.4) Neutrophils (%) (Auto) 62.9 % Lymphocytes (%) (Auto) 24.7 % Monocytes (%) (Auto) 8.0 % Eosinophils (%) (Auto) 3.4 % Basophils (%) (Auto) 0.6 % Neutrophils # (Auto) 3.37 K/uL (1.4-6.5) Lymphocytes # (Auto) 1.32 K/uL (1.2-3.4) Monocytes # (Auto) 0.43 K/uL (0.11-0.59) Eosinophils # (Auto) 0.18 K/uL (0-0.5) Basophils # (Auto) 0.03 K/uL (0-0.2) RDW Standard Deviation 40.5 fL (36.4-46.3) RDW Coefficient of Variation 12.6 % (11.5-14.5) Immature Granulocyte % (Auto) 0.4 % Immature Granulocyte # (Auto) 0.02 K/uL (0.00-0.02) Anion Gap 7.0 mmol/L (3-11) Est Creatinine Clear Calc Drug Dose 83.4 ml/min Estimated GFR () 102.8 Estimated GFR (Non- 88.7 BUN/Creatinine Ratio 10.8 (10-20) Calcium Level 8.7 mg/dl (8.5-10.1) Triglycerides Level 91 mg/dl (0-150) Cholesterol Level 133 mg/dl (0-200) HDL Cholesterol 41 mg/dl LDL Cholesterol, Calculated 74 mg/dl VLDL Cholesterol, Calculated 18 mg/dl Cholesterol/HDL Ratio 3.2 Imaging Brain MRI WITHOUT CONTRAST HISTORY: slurred speech earlier, ?tia/stroke TECHNIQUE: Multiplanar multisequence MRI of the brain was performed without the use of contrast. COMPARISON STUDY: None. FINDINGS: There is a small focus of restricted diffusion seen within the cortex of the left posterior temporal lobe. This is consistent with an acute infarct. There is associated small focus of cytotoxic edema at the area of infarct. No significant mass effect or midline shift. A few scattered punctate foci of T2 hyperintensity seen within the white matter suggestive of mild microvascular ischemic change. The midline structures are intact. The paranasal sinuses and mastoid air cells are clear. The major vascular flow-voids at the skull base are well-maintained. The ventricles are normal in size. No intracranial masses or hemorrhage identified. IMPRESSION: Small acute left posterior temporal lobe infarct. Electronically signed by: Tee Faye M.D. 12/29/2017 9:30 PM Impression 1. Small acute peripheral left parietal stroke December 29, manifested by some expressive and receptive aphasia. I believe this is small vessel ischemic in nature related to his hypertension. His blood pressure was elevated in the emergency room. There is no evidence to suggest embolic phenomenon. He has risk factors for stroke including bilateral carotid stenosis, hypertension, and dyslipidemia. Currently he is doing well with no aphasia or clinical deficits. NIH stroke scale equals 0. He had a stroke on aspirin. 2. Bilateral carotid stenosis, right 70 80 percent with ulceration and left 60- 70 percent This seems progressed compared to his previous ultrasound in February of 2015. Interestingly, his MRI does not show a lot of old small vessel ischemic disease that would imply emboli from the carotid arteries. 3. Hypertension, not adequately controlled on admission but excellent this morning. Plan 1. Switch aspirin to 75 milligrams clopidogrel daily. 2. Keep blood pressure no greater than a mean arterial pressure of 100 3. Check fasting lipid profile. Unfortunately, he cannot use statins due to side effects and he cannot tolerate higher doses of Crestor. Therefore keep Crestor 10 milligrams daily. 4. I would consider a vascular surgery consult as an outpatient. 5. Echocardiogram is pending. 6. I would like to follow this patient as an outpatient in 1-2 weeks. Overall, I spent a total of 115 minutes with this patient including records review, review of MRI films with the radiologist, direct evaluation the patient at bedside, and discussion of treatment options and differential diagnosis with the patient himself at bedtime, clinical staff, and Celina Moreno PA-C
[2017-12-30] MEDS ORDERED: CLOP1TAB5 PO (10:12)
--- NOTE | 2017-12-30 10:40 | Discharge Instructions ---
Discharge Instructions Date of Service Dec 30, 2017. Admission Reason for Admission: Stroke Discharge Discharge Diagnosis / Problem: Stroke Discharge Goals Goal(s): Decrease discomfort, Diagnostic testing, Therapeutic intervention Activity Recommendations Activity Limitations: per Instructions/Follow-up section . Instructions / Follow-Up Instructions / Follow-Up You were admitted to the hospital after developing some difficulty with word finding and expressing yourself. You were found to have a small acute stroke. Further evaluation of the vasculature in your head and neck revealed slight worsening of the narrowing in your neck arteries. You were evaluated by neurology and cleared to return home. As you were previously on a baby aspirin , this has been changed to a different anti-platelet medication called Plavix to help reduce your risk of another stroke. Medications: *Please stop aspirin and instead take Plavix (clopidogrel) 75 mg daily. *Your blood pressure has been on the lower side during your hospital stay, and your heart rate has been slow. I would recommend holding your blood pressure medications (amlodipine, carvedilol, hydrochlorothiazide, and lisinopril) for now at least until you follow up with your primary care provider, who can then determine what is safe to resume. You can check your blood pressure at home. If the top number is over 160, you may restart your lisinopril. Be careful that your blood pressure does not drop too low, such as below 130, until you follow up. *Continue your other home medications as prescribed. Activity: *As discussed, please avoid exerting yourself in the next few weeks until you follow up with neurology. Avoid excessive exercise, working in the sun, and heavy lifting. For your normal treadmill exercising, please reduce to 30 minutes daily and do not exceed a walking pace until you follow up. Follow up: *You will be scheduled to follow up with your primary care provider as well as neurology. Someone will call you with the appointment details. *You will also be set up to establish care with a vascular surgeon to help monitor the stenosis of your neck arteries. Please seek medical attention if you experience fevers, chills, sweats, dizziness/lightheadedness, loss of consciousness, chest pain, shortness of breath, nausea, vomiting, numbness or tingling. Risk Factors for Stroke: You can reduce your chances of stroke by working with your medical provider to adopt a healthy lifestyle. Some specific ways to lower your chance of stroke are: * If you are a smoker, now is the time to stop smoking cigarettes * If you are diabetic, improve the control of your blood sugars * Avoid excessive amounts of alcohol * Control high blood pressure * Lose weight if you are overweight * Be sure to lead an active lifestyle * Eat a healthy diet low in salt, cholesterol and fat You should know about other risk factors for stroke that you are unable to control. These include: * Age 55 years or older * Male gender * Certain racial groups: , or / * Family History of Stroke, Mini stroke or Heart Attack * Sickle Cell Disease Follow Up: It is important for you to keep your follow up appointments with your medical provider. Current Hospital Diet Patient's current hospital diet: AHA Diet (Heart Healthy) Discharge Diet Recommended Diet: AHA Diet (Heart Healthy) Pending Studies Studies pending at discharge: no Laboratory Results Hemoglobin A1c Test 12/29/17 19:00 Range/Units Estimated Average Glucose 123 mg/dl Hemoglobin A1c 5.9 H 4.5-5.6 % Lipid Panel Test 12/30/17 07:05 Range/Units Triglycerides Level 91 0-150 mg/dl Cholesterol Level 133 0-200 mg/dl HDL Cholesterol 41 mg/dl Cholesterol/HDL Ratio 3.2 LDL Cholesterol, Calculated 74 mg/dl Medical Emergencies . Who to Call and When: Medical Emergencies: Call 911 immediately if you experience any of the following warning signs and symptoms of Stroke: * Sudden numbness or weakness of the face, arm or leg, especially on one side of the body * Sudden confusion, trouble speaking or understanding * Sudden trouble seeing in one or both eyes * Sudden trouble walking, dizziness, loss of balance or coordination * Sudden severe headache with no cause Do not delay calling 911 if you experience any warning signs or symptoms of a stroke. Delay in seeking medical attention may affect what treatments can be given to you. . Non-Emergent Contact Non-Emergency issues call your: Primary Care Provider, Neurologist, Surgeon ( vascular surgery) Call Non-Emergent contact if: you have any medication questions . Past History Medical & Surgical History: (1) Stroke . "Provider Documentation" section prepared by Celina Moreno. . Stroke Core Measures Reason no t-PA for Stroke: Treatment not indicated Reason no antithrom by day 2: Treatment provided - N/A Reason no antithrom at D/C: Treatment provided - N/A Reason no statin at D/C: Treatment provided - N/A Reason no anticoag w/a fib: Treatment not indicated
[2017-12-30 10:57] VITALS: BP 123/81; PULSE 88; TEMP 36.4; O2SAT 98
--- NOTE | 2017-12-30 11:21 | Pharmacy Progress Note ---
Pharmacist Stroke Counseling Date of Service Dec 30, 2017. Scope Pharmacy has been consulted to provide medication discharge counseling for this patient admitted with ischemic stroke as per the Pharmacist Discharge Counseling for Stroke Patients Protocol. Medications on Discharge New Medications: Clopidogrel Bisulfate (Plavix) 75 Mg Tab 1 TAB PO DAILY for 30 Days, #30 TAB Continued Medications: Amlodipine (Norvasc) 5 Mg Tab 5 MG PO DAILY, TAB Ascorbic Acid (Ascorbic Acid) 500 Mg Tab 500 MG PO DAILY, TAB Carvedilol (Coreg) 12.5 Mg Tab 12.5 MG PO BID, TAB Coenzyme Q10 (Ubidecarenone) (Co Q-10) 200 Mg Cap 200 MG PO DAILY Hydrochlorothiazide (Hctz) 25 Mg Tab 25 MG PO DAILY, TAB Lisinopril (Zestril) 20 Mg Tab 20 MG PO BID Misc Natural Products (Curcumax Pro) 1 Tab Tab 675 MG PO DAILY Probiotic Product (Probiotic) 1 Cap Cap 1 CAP PO DAILY 15 BILLION CFU Ranitidine (Zantac) 150 Mg Tab 150 MG PO BID Resveratrol-Quercetin (Resveratrol Plus) 1 Tab Tab 200 MG PO HS Rosuvastatin Calcium (Crestor) 10 Mg Tab 10 MG PO DAILY, TAB [[place]] () 1000 MG PO DAILY Discontinued Medications: Aspirin (Aspirin Ec) 81 Mg Tab 81 MG PO DAILY Action The above medications, specifically ones for stroke treatment/prophylaxis, have been reviewed in detail with the patient and his prior to discharge. This includes indication, common adverse reactions, drug interactions, and medication administration. Medication counseling has been employed using the teach-back method to ensure understanding. Outcome The patient and his have demonstrated understanding of the medications. Please note, they are aware that the pharmacist will call them within 72 hours post-discharge to confirm that the appropriate medications are being taken and answer any further medication related questions the patient might have at that time. Contact information Individual to be contacted: patient [phone] Phone number:[phone] Best time to call: anytime- of patient does not answer then leave number and he will call back Additional comments: -patient and very knowledgeable about his medications. Patient was previously on Plavix. Does have problems with bruising and bleeding with aspirin - verified patient understands to discontinue aspirin before starting Plavix. Told him to not take Prilosec or Nexium while on Plavix (takes ranitidine). Told him to let all providers know he is on this medication and that he may be required to hold it ~5 days prior to procedure. -verified patient is unable to take higher doses of Crestor (has been on 10 mg daily for about 8 years). This is documented in neurology note as well. Explained role of Crestor in stroke prevention. -patient and very receptive to teaching and very thankful to speak with pharmacy prior to discharge. Thank you for allowing pharmacy to be involved in the care of this patient. Please call [phone] or [phone] with any additional questions
--- NOTE | 2017-12-30 11:22 | Discharge Summary ---
Discharge Summary Date of Service Dec 30, 2017. Discharge Summary Admission Date: Dec 29, 2017 at 22:24 Discharge Date: Dec 30, 2017 Discharge Disposition: Home Principal Diagnosis: Stroke Problems/Secondary Diagnoses: CAD and h/o OH s/p DOROTHEA to LAD in 2010, HTN, HLD, anxiety, BPH, GERD Immunizations: Have You Had Influenza Vaccine: No History of Tetanus Vaccine?: No History of Pneumococcal: No History of Hepatitis B Vaccine: No Procedures: Brain MRI WITHOUT CONTRAST HISTORY: slurred speech earlier, ?tia/stroke TECHNIQUE: Multiplanar multisequence MRI of the brain was performed without the use of contrast. COMPARISON STUDY: None. FINDINGS: There is a small focus of restricted diffusion seen within the cortex of the left posterior temporal lobe. This is consistent with an acute infarct. There is associated small focus of cytotoxic edema at the area of infarct. No significant mass effect or midline shift. A few scattered punctate foci of T2 hyperintensity seen within the white matter suggestive of mild microvascular ischemic change. The midline structures are intact. The paranasal sinuses and mastoid air cells are clear. The major vascular flow-voids at the skull base are well-maintained. The ventricles are normal in size. No intracranial masses or hemorrhage identified. IMPRESSION: Small acute left posterior temporal lobe infarct. HISTORY: slurred speech earlier, ?tia/stroke TECHNIQUE: [id number] and gadolinium-enhanced MRA of the neck was performed both before and after the intravenous administration of contrast. All measurements were calculated based on NASCET criteria. COMPARISON STUDY: None. FINDINGS: The aortic arch and proximal great vessels are widely patent. Bilateral common carotid and left vertebral arteries are widely patent. The right vertebral artery is hypoplastic and therefore suboptimally assessed but appears to be patent. Moderate right and mild left carotid bifurcation calcification. There is a focal area of approximately 70-80% stenosis within the proximal right internal carotid artery and a focal area of approximately 60-70 % stenosis within the proximal left internal carotid artery due to the atherosclerotic plaque. IMPRESSION: 1. Bilateral proximal internal carotid artery stenosis as described above, right greater than left. 2. No significant stenosis within the common carotid or vertebral arteries. Brain MRA HISTORY: slurred speech earlier, ?tia/stroke TECHNIQUE: 3-D [id number] MRA of the brain was performed without contrast. COMPARISON STUDY: None. FINDINGS: Visualized intracranial internal carotid arteries, distal vertebral arteries, and basilar artery are widely patent. There is no significant stenosis, occlusion, or aneurysm seen within the bilateral ACAs, MCAs, or front clerk. Hypoplastic distal right vertebral artery. IMPRESSION: No significant stenosis, occlusion, or aneurysm within the [place] of [place]. Echocardiogram: Interpretation Summary * Name: DOREEN SEGURA Study Date: 12/30/2017 06:23 AM BP: 107/66 mmHg * Patient Location: [facility]\S\E219\S\1 HR: 50 * : 1950 (M/d/yyyy) Gender: Male Height: 70 in * Age: 67 yrs Ethnicity: CA Weight: 167 lb * Ordering Physician: Mireya Mann * Performed By: Oly Manzano RDCS * * Reason For Study: STROKE * BSA: 1.9 m2 * -- Conclusions -- * Left ventricular systolic function is low normal. * Grade I diastolic dysfunction, (abnormal relaxation pattern). * There are regional wall motion abnormalities as specified. * Compared to a study from 2010, there is little change Procedure Details * A complete two-dimensional transthoracic echocardiogram was performed (2D, M-mode, Doppler and color flow Doppler). * The study was technically limited. * The study was technically difficult. * There were technical limitations due to patient'sPoor acoustic windows secondary to severe lung disease. * A saline contrast injection was performed to assess for cardiac shunting. * The injection was performed through an intravenous line in the right arm. * A total of 20 cc of agitated saline was given. * A contrast injection of Definity was performed to improve assessment of LV function. * Contrast was injected into an intravenous site in the right arm. * Lot # [id number] of Definity utilized for procedure. * Expiration date 12/04. Left Ventricle * The left ventricle is grossly normal size. * There is normal left ventricular wall thickness. * Ejection Fraction = 50-55%. * Left ventricular systolic function is low normal. * Grade I diastolic dysfunction, (abnormal relaxation pattern). * There are regional wall motion abnormalities as specified. * Severe septal and apical septal hypokinesis. Distal posterior hypokinesis. Right Ventricle * The right ventricle is normal in size and function. Atria * The left atrial size is normal. * Right atrial size is normal. Mitral Valve * The mitral valve is grossly normal. * Significant mitral regurgitation is absent. Tricuspid Valve * The tricuspid valve is not well visualized, but is grossly normal. * Significant tricuspid regurgitation is absent. Aortic Valve * The aortic valve is not well visualized. * No hemodynamically significant valvular aortic stenosis. * There is no significant aortic regurgitation. Pulmonic Valve * The pulmonic valve is not well visualized. Pericardium/Pleural * There is no pericardial effusion. Consultations: Neurology Medication Reconciliation New Medications: Clopidogrel Bisulfate (Plavix) 75 Mg Tab 1 TAB PO DAILY for 30 Days, #30 TAB Continued Medications: Amlodipine (Norvasc) 5 Mg Tab 5 MG PO DAILY, TAB Ascorbic Acid (Ascorbic Acid) 500 Mg Tab 500 MG PO DAILY, TAB Carvedilol (Coreg) 12.5 Mg Tab 12.5 MG PO BID, TAB Coenzyme Q10 (Ubidecarenone) (Co Q-10) 200 Mg Cap 200 MG PO DAILY Hydrochlorothiazide (Hctz) 25 Mg Tab 25 MG PO DAILY, TAB Lisinopril (Zestril) 20 Mg Tab 20 MG PO BID Misc Natural Products (Curcumax Pro) 1 Tab Tab 675 MG PO DAILY Probiotic Product (Probiotic) 1 Cap Cap 1 CAP PO DAILY 15 BILLION CFU Ranitidine (Zantac) 150 Mg Tab 150 MG PO BID Resveratrol-Quercetin (Resveratrol Plus) 1 Tab Tab 200 MG PO HS Rosuvastatin Calcium (Crestor) 10 Mg Tab 10 MG PO DAILY, TAB [[place]] () 1000 MG PO DAILY Discontinued Medications: Aspirin (Aspirin Ec) 81 Mg Tab 81 MG PO DAILY Discharge Exam Patient reports feeling well and back to his normal self this morning. He denies any unordinary difficulty with hearing, trouble with word finding, or any expressive aphasia. He denies any acute complaints. The patient denies fevers, chills, sweats, chest pain, palpitations, claudication, cough, wheezing , shortness of breath, nausea, vomiting, abdominal pain, dysuria, hematuria, urinary retention, paralysis, weakness, numbness and tingling. Constitutional: No fever, No chills, No sweats Eyes: No worsening of vision, No eye pain, No diplopia ENT: No hearing loss, No nasal symptoms, No trouble swallowing Respiratory: No cough, No wheezing, No shortness of breath Cardiovascular: No chest pain, No claudication, No palpitations Abdomen: No pain, No nausea, No vomiting Musculoskeletal: No joint pain, No muscle pain, No swelling Genitourinary - Male: No dysuria, No urinary retention, No hematuria Neurologic: No paralysis, No weakness, No numbness/tingling Integumentary: No rash, No itch, No color change General appearance: Well-developed, well-nourished, no apparent distress Head: Normocephalic, atraumatic Eyes: Normal inspection, PERRL, EOMI ENT: Normal ENT inspection, hearing grossly normal, pharynx normal Neck: Supple, no JVD, trachea midline Respiratory/Chest: Lungs clear to auscultation, normal breath sounds, no respiratory distress Cardiovascular: +Bradycardic. Regular rhythm, no gallop, no murmur Abdomen/GI: Normal bowel sounds, non-tender, soft Extremities/Musculoskeletal: Normal inspection, no calf tenderness, no pedal edema Neurological/Psych: Alert, normal mood/affect, oriented x 3 Skin: Normal color, warm/dry, no rash Hospital Course 67 y/o male with a history of CAD and OH s/p stent in 2010, HTN, HLD, anxiety, BPH and GERD who presents with 3-4 hours of aphasia, now resolved. Found to have small left posterior temporal lobe stroke. Acute ischemic stroke--deficits resolved, neurologically stable -Admit to telemetry. Pt in sinus bradycardia overnight with HR 40s-60s, as low as 38 -Brain MRI with small acute left posterior temporal lobe infarct -Head MRA negative -Neck MRA shows moderate right and mild left carotid bifurcation calcification with 70-80% stenosis of proximal right ICA and 60-70% stenosis of proximal left ICA -Stroke protocol w/neuro checks -Neurology consulted, appreciate recs: Discussed case with Dr. Trejo. Pt neurologically stable and ok to go home. Recommend patient takes it easy until he follows up with neurology as outpatient. Would change aspirin to Plavix. Can keep Crestor at current 10 mg dose as pt does not tolerate at higher doses and did not tolerate other statins. Consider outpatient vascular surgery consult given worsening carotid stenosis. Follow up as outpatient in 1-2 weeks. -Echo shows EF 50-55%, grade I diastolic dysfunction. Severe septal and apical septal hypokinesis and distal posterior hypokinesis -HgbA1c 5.9, lipid panel WNL. Total cholesterol 133, non-HDL 92 -ASA d/c'd on discharge, will replace with Plavix 75 mg PO qd -Continue Crestor at 10 mg PO qd CAD, h/o OH s/p stent, HTN, HLD--BP has been as low as 107/66 today and was quite bradycardic overnight, as low as 38 bpm -Amlodipine, carvedilol, hydrochlorothiazide, and lisinopril were held at admission to allow for permissive HTN -Spoke with neurology, agree with continuing to hold these medications for now temporarily until follow up -Pt has BP cuff at home, will monitor this at least until PCP follow up, who can then recheck BP and determine what can be restarted. Advised pt to restart lisinopril (as pt too bradycardic for Coreg) if SBP over 170, goal SBP 140-160 GERD--stable -Continue Zantac 150 mg PO BID DVT prophylaxis -SCDs Code Status -Level I, FULL RESUSCITATION STATUS Total Time Spent: Greater than 30 minutes This includes examination of the patient, discharge planning, medication reconciliation, and communication with other providers. Discharge Instructions Please refer to the electronic Patient Visit Report (Discharge Instructions) for additional information. Follow-Up PCP Neurology Vascular surgery Additional Copies To Frederic Lira M.D.
[2017-12-30] MEDS ORDERED: ROSUVASTATIN CALCIUM 20 MG TAB PO SCH (21:00)
--- NOTE | 2018-01-02 14:43 | Pharmacy Progress Note ---
Pharmacist Post D/C Phone Note Date of phone call: Jan 02, 2018. The patient and/or patient retail account representative(s) were unable to be reached for a follow-up phone call within the 72 hour time frame. Discharge counseling pharmacist contact information has already been provided to the patient should questions arise. Thank you for allowing us to be involved in the care of this patient.
== END 2017-12-30 11:59 | disposition home or self-care (01) | DRG 66 ==
LOC: C.EDB 18:40 → C.2T 22:24 → ENRESERV 22:29
PROVIDERS: ADMIT Internal Medicine; ATTEND Internal Medicine
DX: I63.8 Other cerebral infarction (principal); I65.23 Occlusion and stenosis of bilateral carotid arteries; R47.01 Aphasia; I10 Essential (primary) hypertension; I25.10 Atherosclerotic heart disease of native coronary artery without angina pectoris; I25.2 Old myocardial infarction; F41.9 Anxiety disorder, unspecified; E78.5 Hyperlipidemia, unspecified; K21.9 Gastro-esophageal reflux disease without esophagitis; N40.0 Benign prostatic hyperplasia without lower urinary tract symptoms; Z87.891 Personal history of nicotine dependence; Z95.5 Presence of coronary angioplasty implant and graft

== ENCOUNTER → 2018-01-06 | Outpatient (CLI) | payer OTHER ==
[~2018-01-06] MED LIST changes: +AMLO5TAB3 PO; +ASCO500T16 PO; -ASPEC325 PO; +ASPI81TA28 PO; +ATV/1 SL; +CARV12.52 PO; +CLOP1TAB5 PO; +COEN1CAP37 PO; +CRS/10 PO; -CRS10 PO; -DLC5 PO; -Fish Oil; -HYDC25 PO; +HYDR25TA4 PO; +MISC1TAB34 PO; +MISCCAP80 PO; -MULTIPLE VIT; -NTRGSL/4 UT; +OPTIRAY 320 IV PRN; +RESV1TAB PO; +[UNRECOGNIZED DRUG - OTHER] PO; -[UNRECOGNIZED DRUG - REMARK]; -co q 10
--- NOTE | 2018-01-06 10:57 | DIAGNOSTIC IMAGING REPORT ---
ANGIOGRAPHY NECK COMBO CLINICAL HISTORY: 67 years-old Male presenting with STENOSIS W/CVA. TECHNIQUE: Multidetector CT angiography of the neck was performed before and after the administration of intravenous contrast. 3-D volumetric and/or maximum intensity projection (MIP) images were subsequently reconstructed for review. IV contrast: 120 mL of Optiray 320. A dose lowering technique was used consistent with the principles of ALARA (as low as reasonably achievable). Stenosis measurements were based on NASCET-like criteria. COMPARISON: MRA from 12/29/2017. CT DOSE (mGy.cm): The estimated cumulative dose is 1034.02 mGy.cm. FINDINGS: Supervisor Diagnostic topogram: Unremarkable. Aortic arch: Atherosclerosis of the three-vessel aortic arch with patent origins of the branch vessels. Innominate artery: Patent. Right subclavian artery: Patent. Right common carotid artery: Patent. Right internal and external carotid arteries: Significant noncalcified atherosclerotic plaque burden at the carotid bifurcation. There is significant low density component within this plaque (series 4 image 222). Resulting irregularity of the origin of the right internal carotid artery. Minimum diameter of the right ICA measures 2.9 mm in comparison to the normal distal diameter of 5.0 mm (less than 50% stenosis). The remainder of the right ICA is widely patent. Right ECA patent. Left common carotid artery: Patent. Left internal and external carotid arteries: Calcified and noncalcified atherosclerotic plaque burden at the left carotid bifurcation, which is slightly less severe than on the right. There is also a low density plaque component (series 4 image 228). However, there is a more severe stenosis of the proximal left internal carotid artery relative to the right with a minimum diameter of 2.3 mm in comparison to the normal distal diameter of 5.6 mm (approximately 60% stenosis). The remainder of the left ICA is widely patent. Left ECA patent. Left subclavian artery: Patent. Vertebral arteries: Codominant vertebral arteries. Calcified atherosclerotic plaque at the origin of the left vertebral artery without significant narrowing. Both vertebral arteries are widely patent along their courses. Other: Limited evaluation of the intracranial vessels demonstrates atherosclerosis of the cavernous portions of the ICAs. Soft tissues of the neck normal allowing for the phase of contrast. Degenerative changes of the cervical spine. Lung apices clear. IMPRESSION: 1. Significant bilateral atherosclerotic plaque burden at the carotid bifurcations with low-density atheromatous plaque component. The extent of plaque is overall more severe on the right though there is greater stenosis of the proximal left ICA in comparison to the right. Less than 50% stenosis of the proximal right ICA and approximately 60% stenosis of the proximal left ICA. Electronically signed by: Manish Rodriguez M.D. 01/06/2018 10:56 AM Dictated Date/Time: 01/06/2018 10:45 AM
== END | disposition home or self-care (01) ==
LOC: C.CTS 09:58
PROVIDERS: ATTEND Physician Assistant
DX: I63.233 Cerebral infarction due to unspecified occlusion or stenosis of bilateral carotid arteries (principal)

== ENCOUNTER → 2018-01-08 | Outpatient (CLI) | payer OTHER ==
[~2018-01-08] MED LIST changes: -OPTIRAY 320 IV PRN; +OXYC-57 PO
--- NOTE | 2018-01-08 18:27 | DIAGNOSTIC IMAGING REPORT ---
CHEST 2 VIEWS ROUTINE CLINICAL HISTORY: 67 years-old Male presenting with PULMONARY DISEASE. TECHNIQUE: PA and lateral views of the chest were obtained. COMPARISON: 08/25/2014. FINDINGS: Cardiomediastinal silhouette normal. Lungs and pleural spaces clear. Osseous structures normal. Upper abdomen normal. IMPRESSION: 1. No acute cardiopulmonary disease. Electronically signed by: Manish Rodriguez M.D. 01/08/2018 6:26 PM Dictated Date/Time: 01/08/2018 6:25 PM
== END | disposition home or self-care (01) ==
LOC: C.RAD 18:04
PROVIDERS: ATTEND Surgery Vascular Surgery
DX: Z01.812 Encounter for preprocedural laboratory examination (principal)

== ENCOUNTER 2021-06-26 09:38 | Inpatient (IN) ==
--- NOTE | 2021-06-13 16:06 | PAT Medication Instructions ---
Medication Instructions Date of Service June 13, 2021 Home Medications Medication Instructions Recorded tadalafil 10 mg tablet (Cialis) 10 mg PO DAILY PRN #30 tab 02/21/20 lorazepam 1 mg tablet 1 mg PO DAILY PRN #30 tab 04/18/20 rosuvastatin 40 mg tablet 40 mg PO HS #90 tab 07/17/20 hydrochlorothiazide 25 mg tablet 25 mg PO QAM #90 tab 08/03/20 lisinopril 20 mg tablet 20 mg PO BID #180 tab 12/27/20 amlodipine 5 mg tablet (Norvasc) 5 mg PO QAM #90 tab 01/05/21 carvedilol 12.5 mg tablet (Coreg) 12.5 mg PO BID #180 tab 01/05/21 clopidogrel 75 mg tablet (Plavix) 75 mg PO HS #90 tab 01/25/21 famotidine 20 mg tablet 20 mg PO BID #180 tab 03/13/21 Lactobacillus acidophilus and rhamnosus 15 billion cell capsule (Probiotic) 1 cap PO HS ascorbic acid (vitamin C) 500 mg tablet (Vitamin C) 500 mg PO QPM cholecalciferol (vitamin D3) 50 mcg (2,000 unit) capsule (Vitamin D3) 50 mcg PO QAM coenzyme Q10 200 mg capsule (Co Q-10) 200 mg PO QAM omega-3 fatty acids 1,000 mg capsule 1,000 mg PO HS tadalafil 10 mg tablet (Cialis) 10 mg PO DAILY PRN lorazepam 1 mg tablet 1 mg PO DAILY PRN rosuvastatin 40 mg tablet 40 mg PO HS hydrochlorothiazide 25 mg tablet 25 mg PO QAM lisinopril 20 mg tablet 20 mg PO BID amlodipine 5 mg tablet (Norvasc) 5 mg PO QAM carvedilol 12.5 mg tablet (Coreg) 12.5 mg PO BID clopidogrel 75 mg tablet (Plavix) 75 mg PO HS famotidine 20 mg tablet 20 mg PO BID ASK your prescriber and surgeon clopidogrel 75 mg tablet (Plavix) 75 mg PO HS STOP taking 2 weeks before surgery coenzyme Q10 200 mg capsule (Co Q-10) 200 mg PO QAM omega-3 fatty acids 1,000 mg capsule 1,000 mg PO HS STOP taking 24 hours before surgery tadalafil 10 mg tablet (Cialis) 10 mg PO DAILY PRN DO NOT take the morning of surgery cholecalciferol (vitamin D3) 50 mcg (2,000 unit) capsule (Vitamin D3) 50 mcg PO QAM hydrochlorothiazide 25 mg tablet 25 mg PO QAM lisinopril 20 mg tablet 20 mg PO BID Take morning of surgery With a small sip of water, OTHERWISE NOTHING TO EAT OR DRINK AFTER MIDNIGHT: lorazepam 1 mg tablet 1 mg PO DAILY PRN(if needed) amlodipine 5 mg tablet (Norvasc) 5 mg PO QAM carvedilol 12.5 mg tablet (Coreg) 12.5 mg PO BID famotidine 20 mg tablet 20 mg PO BID Take evening before surgery Lactobacillus acidophilus and rhamnosus 15 billion cell capsule (Probiotic) 1 cap PO HS ascorbic acid (vitamin C) 500 mg tablet (Vitamin C) 500 mg PO QPM rosuvastatin 40 mg tablet 40 mg PO HS lisinopril 20 mg tablet 20 mg PO BID carvedilol 12.5 mg tablet (Coreg) 12.5 mg PO BID famotidine 20 mg tablet 20 mg PO BID Other Notes If you have any questions please call us at [phone] or [phone] or [phone] or [phone]
--- NOTE | 2021-06-22 09:21 | Anesthesiology Consultation ---
Date of Service June 22, 2021 Assessment & Plan (1) Encounter for pre-operative examination: - check BSG am DOS. - vascular surgery 05/31/2021 [facility]: "...underwent a left carotid endarterectomy...has subsequently developed a severe greater than 90% narrowing of his right internal carotid artery...recommend a carotid endarterectomy of the right carotid artery..." - cardiology office visit 05/01/2021 [place]: "...patient is stable from a cardiovascular standpoint...excellent control of his blood pressure and cholesterol values...his coronary artery disease remains quiescent his current medical regimen...hypertension, hypercholesterolemia, cerebral vascular disease (left temporal CVA, left CEA, December 2017), ischemic cardiomyopathy (35-40%), and his coronary artery disease (AMI, pLAD DOROTHEA, January 2011). Since his last visit, the patient has done well..." - COVID screening: Per assessment on 06/22/2021: Travel screen negative, no known COVID-19 positive contacts or current COVID-19 related symptoms in past 2 weeks. Patient vaccinated. Pre-op COVID test completed today at PAT appointment. Awaiting results. Chart Review Chart Review: Acceptable Risk for Surgery and Patient seen in Pre Admission Testing Teaching & Discussion Pre-Anesthesia Teaching/Discussion Notes: Instructed NPO after midnight before surgery, except medications with 15 cc of water. Medication instructions provided according to the [facility] guidelines. History Surgery Operation Date: 06/26/21 09:50 Proposed Procedures p Right Carotid Endarterectomy - Milton Perez MD Height/Weight Height: 5 ft 10 in Weight: 79.6 kg Allergies Allergy/AdvReac Type Severity Reaction Status Date / Time No Known Allergies Allergy Verified 06/13/21 08:01 Medications Home Medications Medication Instructions Recorded Confirmed Last Taken Lactobacillus acidophilus and 1 cap PO HS 07/16/19 06/13/21 07/15/19 rhamnosus 15 billion cell capsule (Probiotic) ascorbic acid (vitamin C) 500 mg 500 mg PO QPM 07/16/19 06/13/21 07/16/19 tablet (Vitamin C) cholecalciferol (vitamin D3) 50 50 mcg PO QAM 07/16/19 06/13/21 07/16/19 mcg (2,000 unit) capsule (Vitamin D3) coenzyme Q10 200 mg capsule (Co 200 mg PO QAM 07/16/19 06/13/21 07/16/19 Q-10) omega-3 fatty acids 1,000 mg 1,000 mg PO HS 07/16/19 06/13/21 07/15/19 capsule tadalafil 10 mg tablet (Cialis) 10 mg PO DAILY PRN #30 tab 02/21/20 06/13/21 Unknown lorazepam 1 mg tablet 1 mg PO DAILY PRN #30 tab 04/18/20 06/13/21 Unknown rosuvastatin 40 mg tablet 40 mg PO HS #90 tab 07/17/20 06/13/21 Unknown hydrochlorothiazide 25 mg tablet 25 mg PO QAM #90 tab 08/03/20 06/13/21 Unknown lisinopril 20 mg tablet 20 mg PO BID #180 tab 12/27/20 06/13/21 Unknown amlodipine 5 mg tablet (Norvasc) 5 mg PO QAM #90 tab 01/05/21 06/13/21 Unknown carvedilol 12.5 mg tablet (Coreg) 12.5 mg PO BID #180 tab 01/05/21 06/13/21 Unknown clopidogrel 75 mg tablet (Plavix) 75 mg PO HS #90 tab 01/25/21 06/13/21 Unknown famotidine 20 mg tablet 20 mg PO BID #180 tab 03/13/21 06/13/21 Unknown Past Medical History Medical History (Updated 06/22/21 @ 09:56 by Mandi Marks, [facility]) Anxiety Carotid stenosis severe narrowing right ICA; s/p left carotid endarterectomy-left carotid artery does not demonstrate hemodynamically significant stenosis per neck CTA 05/2021 Coronary arteriosclerosis (Unknown) CVA (cerebral vascular accident) History of left posterior temporal CVA December 2017-NO RESIDUAL EFFECTS Erectile dysfunction GERD (gastroesophageal reflux disease) controlled, stable per pt Hearing loss does not wear hearing aids as did not find much benefit History of heart attack Anterior CA 01/2011, LAD DOROTHEA, follows with [place] [facility] Hyperlipidemia Hypertension controlled, stable per pt Ischemic cardiomyopathy EF 50-55% per 2018 echocardiogram (h/o EF 35-40%) Prediabetes Patient denies h/o seizures, blood clots or blood transfusions. Exercise / Class Metabolic Activity II 4-5 Yardwork/Stairs/Walk up hill (denies CP or SOB with 1 FOS) Past Family History Family History Father Coronary heart disease Heart disease Tachycardia Hypertension Mother SDAT (senile dementia of Alzheimer's type) Coronary heart disease Heart disease Brother Peripheral arterial disease Hypertension Family/Other No problems noted. Family/Other No problems noted. Grandmother (Maternal) Family history of diabetes mellitus Denies family history of Ovarian cancer Prostate cancer Breast cancer Colorectal cancer Past Surgical History Surgical History History of carotid endarterectomy LEFT 12/2017 History of colonoscopy History of heart artery stent January 2011-lad drug-eluting stent S/P tonsillectomy Past Anesthesia History No Hx of Anesthesia Complications and No Family Hx of Anesthesia Complications History of PONV No Hx of PONV and No Hx of Motion Sickness Social History Smoking Status: Never smoker Do You Dip or Chew Tobacco: No (QUIT) Smoking End Date: QUIT IN HIS 30'S Hx Alcohol Use: No Hx Substance Use: No Review of Systems Snoring, denies witnessed apneas or sleep studies. Patient denies chest pain, shortness of breath, dyspnea on exertion, fever, chills, cough, wheezing, or palpitations. Physical Exam Vital Signs Vitals BP 125/78 P 60 TEMP 97.9 SP02 98% on RA RESP 17 Physical Full cervical extension range of motion without pain Full TMJ range of motion TMD 3.5 finger breaths Mallampati Score 2 Dentition: intact, bridge front four upper teeth, several missing teeth-two front upper and lower; denies chipped or loose teeth, caps/crowns Lungs: normal respiratory effort. Clear throughout to auscultation, no adventitious breath sounds Cardiac: regular rate and rhythm, no murmurs noted Extremities: no distal extremity edema Lab Results Anesthesia Preop Results Results Anesthesia Widget: WBC 5.14 K/uL (4.8-10.8) 06/22/21 Hgb 14.4 g/dL (14.0-18.0) 06/22/21 Hct 41.6 % (42-52) L 06/22/21 Plt 188 K/uL (130-400) 06/22/21 Na 135 mmol/L (136-145) L 06/22/21 K 4.1 mmol/L (3.5-5.1) 06/22/21 Cl 101 mmol/L (98-107) 06/22/21 CO2 29 mmol/L (21-32) 06/22/21 BUN 20 mg/dl (6-23) 06/22/21 Creat 1.00 mg/dl (0.6-1.4) 06/22/21 Glucose Level 107 mg/dl (70-99(Fasting)) H 06/22/21 PT 10.3 Seconds (9.0-12.0) 06/22/21 PTT 25.9 Seconds (21.0-31.0) 06/22/21 INR 1.0 (0.9-1.1) 06/22/21 Blood Type O Negative 06/22/21 Antibody Screen NEGATIVE 06/22/21 Testing Laboratory Results A1c 6.1% 03/2021 Electrocardiogram Date: 06/22/21 Sinus bradycardia, rate 56 bpm Chest X-Ray Date: 06/22/21 FINDINGS: The cardiomediastinal and hilar silhouettes are within normal limits. Coronary arterial stent. No pneumothorax, pleural effusion, airspace consolidation or overt pulmonary edema. Degenerative changes of the shoulders and spine. IMPRESSION: No acute process. Echocardiogram Date: 12/30/17 Left ventricular systolic function is low normal Grade I diastolic dysfunction Technical limitations due to patient's poor acoustic windows secondary to severe lung disease EF 50-55% Severe septal and apical septal hypokinesis. Distal posterior hypokinesis. Other Testing Neck CTA 05/21/2021 IMPRESSION: Redemonstration of severe, greater than 70% luminal narrowing about the proximal right internal carotid artery.
--- NOTE | 2021-06-26 07:48 | History & Physical Report ---
Date of Service June 26, 2021 Assessment & Plan (1) Stenosis of right carotid artery: Plan: Patient is admitted for a right CEA. I have discussed the risks options and benefits of the procedure with the patient. The patient understands the risks options and benefits and agrees to the procedure. History of Present Illness Chief Complaint: Right internal carotid stenosis Primary Care Provider: Frederic Lira MD Mr. Carroll is a middle-aged male who presents to vascular surgery clinic today for an annual follow-up visit regarding his history of carotid stenosis and left carotid endarterectomy which was performed in 2018. At that time, patient had unfortunately suffered a left hemispheric CVA. He recovered completely from that event. He is now seen annually for right ICA stenosis. Patient continues to deny any symptoms of cerebrovascular insufficiency, including amaurosis, extremity weakness numbness or tingling, difficulty speaking or swallowing, facial droop, sudden onset confusion, dizziness, unilateral headache, other concerns. He denies any significant changes in his health since being seen here 1 year ago. His carotid ultrasound performed prior to today's appointment demonstrates a widely patent left carotid endarterectomy site without evidence of restenosis. His right ICA demonstrates worsening stenosis with an ICA/CCA ratio of 7.7 and end-diastolic velocities of 133 which is significantly changed in comparison to his ultrasound 1 year ago. Allergies Allergy/AdvReac Type Severity Reaction Status Date / Time No Known Allergies Allergy Verified 06/13/21 08:01 Home Medications Medication Instructions Recorded Confirmed Type Lactobacillus acidophilus and 1 cap PO HS 07/16/19 06/13/21 History rhamnosus 15 billion cell capsule (Probiotic) ascorbic acid (vitamin C) 500 mg 500 mg PO QPM 07/16/19 06/13/21 History tablet (Vitamin C) cholecalciferol (vitamin D3) 50 50 mcg PO QAM 07/16/19 06/13/21 History mcg (2,000 unit) capsule (Vitamin D3) coenzyme Q10 200 mg capsule (Co 200 mg PO QAM 07/16/19 06/13/21 History Q-10) omega-3 fatty acids 1,000 mg 1,000 mg PO HS 07/16/19 06/13/21 History capsule tadalafil 10 mg tablet (Cialis) 10 mg PO DAILY PRN #30 tab 02/21/20 06/13/21 Rx lorazepam 1 mg tablet 1 mg PO DAILY PRN #30 tab 04/18/20 06/13/21 Rx rosuvastatin 40 mg tablet 40 mg PO HS #90 tab 07/17/20 06/13/21 Rx hydrochlorothiazide 25 mg tablet 25 mg PO QAM #90 tab 08/03/20 06/13/21 Rx lisinopril 20 mg tablet 20 mg PO BID #180 tab 12/27/20 06/13/21 Rx amlodipine 5 mg tablet (Norvasc) 5 mg PO QAM #90 tab 01/05/21 06/13/21 Rx carvedilol 12.5 mg tablet (Coreg) 12.5 mg PO BID #180 tab 01/05/21 06/13/21 Rx clopidogrel 75 mg tablet (Plavix) 75 mg PO HS #90 tab 01/25/21 06/13/21 Rx famotidine 20 mg tablet 20 mg PO BID #180 tab 03/13/21 06/13/21 Rx Past Med/Surg History Medical History Anxiety Carotid stenosis severe narrowing right ICA; s/p left carotid endarterectomy-left carotid artery does not demonstrate hemodynamically significant stenosis per neck CTA 05/2021 Coronary arteriosclerosis (Unknown) CVA (cerebral vascular accident) History of left posterior temporal CVA December 2017-NO RESIDUAL EFFECTS Erectile dysfunction GERD (gastroesophageal reflux disease) controlled, stable per pt Hearing loss does not wear hearing aids as did not find much benefit History of heart attack Anterior PR 01/2011, LAD DOROTHEA, follows with [facility] Hyperlipidemia Hypertension controlled, stable per pt Ischemic cardiomyopathy EF 50-55% per 2018 echocardiogram (h/o EF 35-40%) Prediabetes Surgical History History of carotid endarterectomy LEFT 12/2017 History of colonoscopy History of heart artery stent January 2011-lad drug-eluting stent S/P tonsillectomy Family History Father Coronary heart disease Heart disease Tachycardia Hypertension Mother SDAT (senile dementia of Alzheimer's type) Coronary heart disease Heart disease Brother Peripheral arterial disease Hypertension Family/Other No problems noted. Family/Other No problems noted. 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 Patient has no focal neurological deficits at this time. He is alert and oriented. His right carotid artery does demonstrate a significant bruit, his left demonstrates a more faint bruit. His heart is regular, his lungs are clear. His radial pulses are +3. Abdomen is benign.
[~2021-06-26 09:38] MED LIST changes: -AMLO5TAB3 PO; -ASCO500T16 PO; -ASPI81TA28 PO; -ATV/1 SL; -CARV12.52 PO; -CLOP1TAB15 PO; -CLOP1TAB5 PO; -COEN1CAP37 PO; -CRS/10 PO; -HYDR25TA4 PO; +LACTATED RINGER'S 1,000 ML IV SCH; -LISI-725 PO; -MISC1TAB34 PO; -MISCCAP80 PO; -OXYC-57 PO; -RANI150T85 PO; -RESV1TAB PO; -[UNRECOGNIZED DRUG - OTHER] PO; +ceFAZolin 1000MG 1,000 MG/7.5 ML SYR IV SCH
[2021-06-26] MEDS ORDERED: MIDAZOLAM HCL 1 MG/ML 2ML VIAL ONE (10:00)
[2021-06-26] MEDS ORDERED: fentaNYL citrate 100 MCG/2 ML VIAL ONE ×2 (10:00→12:53)
[2021-06-26] MEDS ORDERED: HEPARIN (PORCINE) 1000 UNIT/ML 10 ML (CATH LAB USE ONLY) ONE (10:30)
[2021-06-26] MEDS ORDERED: THROMBIN FOR SOLN 20000 UNIT KIT ONE (10:30)
[2021-06-26] MEDS ORDERED: LIDOCAINE 1% LOCAL 20 ML VIAL ONE (10:30)
[2021-06-26] MEDS ORDERED: GELATIN SPONGE SZ 100 ONE (10:30)
[2021-06-26] MEDS ORDERED: BUPIVACAINE 0.5 % 5 MG/1 ML MPF 30ML VIAL ONE (10:31)
[2021-06-26] MEDS ORDERED: EPINEPHrine INJ 1 MG/ML AMP ONE (10:31)
[2021-06-26] MEDS ORDERED: HEPARIN SOD (PORCINE) 1000 UNIT/ML ONE (10:48)
[2021-06-26] MEDS ORDERED: PROPOFOL IV EMULSION 10 MG/ML 20 ML VIAL IV ONE (10:48)
[2021-06-26] MEDS ORDERED: ONDANSETRON INJ 2 MG/ML 2 ML VIAL ONE ×2 (10:48→13:18)
[2021-06-26] MEDS ORDERED: DEXAMETHASONE SOD INJ 4 MG/ML VIAL ONE (10:48)
[2021-06-26] MEDS ORDERED: LIDOCAINE 2% 2 ML VIAL/AMP(20MG/ML) INFIL ONE (10:48)
[2021-06-26] MEDS ORDERED: ROCURONIUM BROMIDE 10 MG/ML 5 ML VIAL IV ONE (10:48)
[2021-06-26] MEDS ORDERED: ATROPINE SULFATE 0.1 MG/ML 10ML SYR IV PRN (10:55)
[2021-06-26] MEDS ORDERED: ePHEDrine sulfate 50 MG/ML AMP IV PRN (10:55)
[2021-06-26] MEDS ORDERED: ONDANSETRON INJ 2 MG/ML 2 ML VIAL IV PRN ×2 (10:55→16:20)
[2021-06-26] MEDS ORDERED: fentaNYL citrate 100 MCG/2 ML VIAL IV PRN (10:55)
--- NOTE | 2021-06-26 11:05 | History & Physical Bridge Note ---
Date of Service June 26, 2021 History & Physical Bridge Note I have examined the patient, reviewed the History & Physical and in the interval since the performance of the History & Physical I have noted the following changes of clinical significance: no changes noted
[2021-06-26] MEDS: ceFAZolin 330 MG/ML 1 GM VIAL ONE ×2 (11:25→13:41)
[2021-06-26] MEDS ORDERED: LARYING-O-JET KIT (LTA) ONE (11:59)
[2021-06-26] MEDS ORDERED: ePHEDrine sulfate 50 MG/ML SYR ONE (13:07)
[2021-06-26] MEDS ORDERED: PHENYLEPHRINE HCL 10 MG/ML VIAL ONE (13:08)
[2021-06-26] MEDS ORDERED: GLYCOPYRROLATE 0.2 MG/ML VIAL ONE (13:10)
[2021-06-26] MEDS ORDERED: NEOSTIGMINE METHYLSULFATE 1 MG/ML 10ML VIAL ONE (13:10)
--- NOTE | 2021-06-26 13:46 | Operative Report ---
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 Endarterectomy was recommended. I have discussed the risks options and benefits of the procedure with the patient. The patient understands the risks options and benefits and agrees to the procedure. Description of Procedure The patient was taken to the operating room and placed in supine position. After general anesthesia was accomplished the left side of the neck was prepped and draped in a sterile manner. The patient was identified and a timeout performed. A longitudinal neck incision was then made coursing along the medial border of the sternocleidomastoid muscle. The incision was taken down through the platysmal layer. The facial vein was identified, ligated, and divided. The common carotid artery was then seen. It was dissected free down to the omohyoid muscle. The dissection was carried upward until the external carotid artery and superior thyroid artery was seen. The superior thyroid artery was slung with a 2-0 silk suture. The external carotid was slung with a red rubber vessel loop. Next the dissection was carried up along the internal carotid artery. This was carried upward to beyond the area of narrowing. The hypoglossal nerve was seen and preserved. The patient was heparinized. After adequate heparinization was accomplished, the internal, external, and common carotid arteries were clamped. A longitudinal arteriotomy was started on the common carotid artery and extended upward along the internal carotid artery to a point beyond the area of narrowing. There was a large ulcerated hemorrhagic calcified plaque of the internal carotid artery origin causing approximately >90% narrowing. A Doppler shunt was then placed in the internal, followed by the common carotid artery and held in place with Zeferino clamps. There was good back bleeding seen from the internal carotid artery. The endarterectomy was then started in the appropriate plane on the common carotid artery. This was carried upward and the external carotid was everted and endarterectomized. The endarterectomy was then carried up along the internal carotid artery till a nice feathering breakoff point was accomplished beyond the end of the plaque. The endarterectomy was then carried down further on the common carotid artery. At end of the arteriotomy, the plaque was then transected. Under loop magnification, all loose debris and flaps werer removed. There is no distal flap seen at the end of the endart erectomy site. The arteriotomy then closed using an bovinel patch and a running 6-0 Prolene suture. This was done in the usual vascular fashion. Prior to completing the closure, the doppler shunt was removed and the internal and common carotid arteries were reclamped. Backbleeding and forward bleeding was allowed to occur. The flow surface was irrigated with heparinized saline. The final few sutures were then placed and securely tied. Clamps were then removed off the external and common carotid arteries. The clamp was then removed the internal carotid artery. Good distal flow was seen. Adequate hemostasis was seen of the patch. The wound was inspected and adequate hemostasis was obtained. The wound was irrigated with antibiotic solution. It was then closed with a running 3-0 Vicryl suture for the platysmal layer and a 4-0 subcuticular Vicryl suture for the skin edges. Dermabond was used for dressing. The patient left the operation room in satisfactory condition and tolerated the procedure well. All needle and sponge counts were correct at the end of the procedure. Sarah Muir Pac assisted due to lack of resident availability and was necessary for prepping, draping, retraction, wound closure defects, subQ and skin closure and was necessary for the case. I attest to the content of the Intraoperative Record and any orders documented therein. Any exceptions are noted below.
--- NOTE | 2021-06-26 15:11 | Anesthesiology Progress Note ---
Date of Service June 26, 2021 Anesthesia Post Procedure Vital Signs Vital Signs: Temp Pulse Pulse Resp BP Pulse Ox 06/26/21 14:55 63 15 105/71 95 06/26/21 14:45 66 14 109/83 100 06/26/21 14:35 62 17 103/67 98 06/26/21 14:25 69 15 102/64 98 06/26/21 14:17 36.0 C L 64 16 121/77 97 06/26/21 10:30 36.6 C 62 18 161/88 H 99 Transfer of Care Handoff Completed per policy Notes Mental Status: alert / awake / arousable and participated in evaluation Patient Amnestic to Procedure: Yes Nausea / Vomiting: adequately controlled Pain: adequately controlled Airway Patency, RR, SpO2: stable & adequate BP & HR: stable & adequate Hydration State: stable & adequate Anesthetic Complications: no major complications apparent and Pt Satisfied with anesthetic care Notes: The patient is doing very well in recovery. He is awake and answering questions appropriately. He is moving all extremities and cranial nerves are grossly intact. His blood pressure is stable in the low 100s/70s. We are using the blood pressure cuff pressures as the arterial line waveform seems dampened due to the patient continually moving his right wrist where the arterial line is located. He will be transferred to the ICU per protocol for close monitoring overnight.
[2021-06-26] MEDS ORDERED: MoRPHine SULFATE 4 MG/ML 1 ML CARP\\VIAL IV PRN (16:20)
[2021-06-26] MEDS ORDERED: oxyCODONE/ACETAMINOPHEN 5mg/325mg TAB PO PRN (16:20)
[2021-06-26] MEDS ORDERED: LORazepam 1 MG TAB PO PRN (16:29)
[2021-06-26] MEDS: LACTATED RINGER'S 1,000 ML IV SCH ×2 (16:43→17:09)
[2021-06-26] MEDS ORDERED: ACETAMINOPHEN 325 MG TAB ONE (16:59)
[2021-06-26] MEDS: ceFAZolin 1000MG 1,000 MG/7.5 ML SYR IV SCH (19:51)
--- NOTE | 2021-06-26 20:51 | Critical Care Consultation ---
Date of Consultation June 26, 2021 Assessment & Plan (1) Admitted to intensive care unit: Reason Critically Ill: 70-year-old male status post RIGHT CEA. NEURO - * CAM ICU: NEGATIVE CARDIAC/VASCULAR - * Status post RIGHT CEA: * Without complication. * Postoperative incision site clean, dry, intact and without edema. * Coronary artery disease, hypertension, hyperlipidemia: * Continue home medications as prescribed. * Monitor on telemetry. RESPIRATORY - * No history of respiratory disease. * Saturating well on room air. GI/NUTRITION - * Progress diet as tolerated RENAL/LYTES - * No significant electrolyte derangements. * IVF: LR at 125 mL's per hour - * No concerns at this time. ENDO - * No h/o DM or Thyroid Dz * BSGs per unit protocol. ISS --> gtt per unit policy. HEME - * Stable H&H * Monitor for s/s bleeding s/p CEA ID - * No concerns for infectious contribution at this time. LINES/IV ACCESS - * PIVs x2 DVT PROPHYLAXIS - * Per vascular surgery recommendations. * SCDs I have personally spent 32 minutes of critical care time in the direct management of this patient. This is a life/limb threatening event. This includes time spent evaluating patient, direct bedside care, chart review, placing orders, interpretation of diagnostic studies, discussion with consultants, pat ient, and family members, as well as other required patient management activities. This time is exclusive of all separately billable procedures, and teaching time and separate from and in addition to any other critical care service time. Thank you for allowing us to participate in the care of this patient. Please refer to my attending physician's documentation for any further recommendations. (2) Stenosis of right carotid artery: (3) S/P carotid endarterectomy: History of Present Illness Attending Physician: Milton Perez MD History of Present Illness Patient is a 70-year-old male with a significant past medical history of CVA, coronary artery disease status post PTCI, hypertension, hyperlipidemia, and stenosis of the RIGHT carotid artery. Patient noted to have increasing RIGHT carotid stenosis. He underwent planned carotid endarterectomy today without complication. Patient admitted to the ICU for ongoing medical management status post intervention. Upon evaluation in the ICU, the patient is awake, alert, and oriented. He has minimal complaints of discomfort at surgical site. Otherwise, he feels fine and offers no complaints. Specifically, the patient denies complaints of headaches, dizziness, lightheadedness, blurry vision, double vision, slurred speech, facial droop, or unilateral weakness/numbness. Allergies Allergy/AdvReac Type Severity Reaction Status Date / Time No Known Allergies Allergy Verified 06/26/21 10:12 Home Medications Medication Instructions Recorded Confirmed Type Lactobacillus acidophilus and 1 cap PO HS 07/16/19 06/26/21 History rhamnosus 15 billion cell capsule (Probiotic) ascorbic acid (vitamin C) 500 mg 500 mg PO QPM 07/16/19 06/26/21 History tablet (Vitamin C) cholecalciferol (vitamin D3) 50 50 mcg PO QAM 07/16/19 06/26/21 History mcg (2,000 unit) capsule (Vitamin D3) coenzyme Q10 200 mg capsule (Co 200 mg PO QAM 07/16/19 06/26/21 History Q-10) omega-3 fatty acids 1,000 mg 1,000 mg PO HS 07/16/19 06/26/21 History capsule tadalafil 10 mg tablet (Cialis) 10 mg PO DAILY PRN #30 tab 02/21/20 06/26/21 Rx lorazepam 1 mg tablet 1 mg PO DAILY PRN #30 tab 04/18/20 06/26/21 Rx rosuvastatin 40 mg tablet 40 mg PO HS #90 tab 07/17/20 06/26/21 Rx hydrochlorothiazide 25 mg tablet 25 mg PO QAM #90 tab 08/03/20 06/26/21 Rx lisinopril 20 mg tablet 20 mg PO BID #180 tab 12/27/20 06/26/21 Rx amlodipine 5 mg tablet (Norvasc) 5 mg PO QAM #90 tab 01/05/21 06/26/21 Rx carvedilol 12.5 mg tablet (Coreg) 12.5 mg PO BID #180 tab 01/05/21 06/26/21 Rx clopidogrel 75 mg tablet (Plavix) 75 mg PO HS #90 tab 01/25/21 06/26/21 Rx famotidine 20 mg tablet 20 mg PO BID #180 tab 03/13/21 06/26/21 Rx Patient History Medical History Anxiety Carotid stenosis severe narrowing right ICA; s/p left carotid endarterectomy-left carotid artery does not demonstrate hemodynamically significant stenosis per neck CTA 05/2021 Coronary arteriosclerosis (Unknown) CVA (cerebral vascular accident) History of left posterior temporal CVA December 2017-NO RESIDUAL EFFECTS Erectile dysfunction GERD (gastroesophageal reflux disease) controlled, stable per pt Hearing loss does not wear hearing aids as did not find much benefit History of heart attack Anterior PA 01/2011, LAD DOROTHEA, follows with [facility] Hyperlipidemia Hypertension controlled, stable per pt Ischemic cardiomyopathy EF 50-55% per 2018 echocardiogram (h/o EF 35-40%) Prediabetes Surgical History History of carotid endarterectomy LEFT 12/2017 History of colonoscopy History of heart artery stent January 2011-lad drug-eluting stent S/P tonsillectomy Family History Father Coronary heart disease Heart disease Tachycardia Hypertension Mother SDAT (senile dementia of Alzheimer's type) Coronary heart disease Heart disease Brother Peripheral arterial disease Hypertension Family/Other No problems noted. Family/Other No problems noted. Grandmother (Maternal) Family history of diabetes mellitus Denies family history of Ovarian cancer Prostate cancer Breast cancer Colorectal cancer Social History Smoking Status: Former smoker Age Quit Using Tobacco: 31; Smoking End Date: QUIT IN HIS 30'S; Second Hand Exposure: No; Do You Dip or Chew Tobacco: No (QUIT); Hx Alcohol Use: No Hx Substance Use: No Preferred Language: Slovenian Communication Ability: Effective Hearing Ability: Hard of Hearing Healthcare Receptionist Required: No Beliefs That Will Affect Care: None marital status: Current Living Situation: Spouse current occupational status: employed and retired 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[employer]/ [employer] Other Information That Helps Us Care for You: No Feels Safe at Home: Yes Safety Concerns: Feels Safe At This Time Childhood Exposure to Second-Hand Smoke: Yes caffeine: No Dental Care, Regularly: Yes Physical Activity Frequency: 3-4 Times per Week Physical Activity Frequency Comment: walk weight lifting 1.5 hours Seatbelt Use: always Sunscreen Use: Yes Assistive Devices: Glasses Assistive Devices Comment: PERMANENT BRIDGE UPPER FRONT Review of Systems Review of Systems: A complete 10 point review of systems was reviewed with the patient with pertinent positives and negatives as per history of present illness. All else were negative. Physical Exam Physical Exam: VITAL SIGNS - Vital signs and nursing notes were reviewed. GENERAL - 70-year-old male appearing his stated age who is in no acute distress. Communicates well with provider and answers questions appropriately. HEAD - NC/AT. EYES - PERRL with EOMI bilaterally. Sclera anicteric. EARS - No deformities of external structures noted on gross examination bilaterally. NOSE - Midline and without cyanosis. No epistaxis or purulent drainage noted. MOUTH/OROPHARYNX - Without perioral cyanosis. Buccal mucosa pink and moist and without leukoplakia. NECK - RIGHT sided surgical incision site clean, dry, and intact. Neck with FROM. Supple to palpation. LUNGS - Chest wall symmetric without accessory muscle use, intercostals retractions, or central cyanosis. Normal vesicular breath sounds CTA B/L. No wheezes, rales, or rhonchi appreciated. CARDIAC - RRR with S1/S2. No murmur, rubs, or gallops appreciated. No reproducible tenderness to palpation appreciated over the anterior chest wall. ABDOMEN - Abdominal contour flat without pulsations or visible masses. BS normoactive all four quadrants. No tenderness, palpable masses, hepatosplenomegaly, or ascites noted. EXTREMITIES - No clubbing or peripheral cyanosis. No pretibial edema present. +3/5 radial and dorsalis pedis pulses palpated throughout. +5/5 strength noted in UE/LE bilaterally. NEUROLOGIC - Cranial nerves II through XII grossly intact. Sensory intact to light touch throughout. PSYCH - A&Ox3 and cooperates fully with examiner. Pt is very pleasant and interacts well with examiner. Results & Data Results & Data ([facility]) Vital Signs (Past 12 Hours) Vital Signs Temp Pulse Pulse Resp BP Pulse Ox 06/26/21 19:00 36.7 C 71 14 109/67 99 06/26/21 18:00 36.9 C 70 18 104/59 L 98 06/26/21 17:00 61 18 104/59 L 98 06/26/21 16:20 36.9 C 62 18 95/57 L 06/26/21 15:45 60 18 96/58 L 96 06/26/21 15:35 64 17 101/62 96 06/26/21 15:25 58 L 15 101/61 95 06/26/21 15:15 56 L 19 100/58 L 95 06/26/21 15:05 36.6 C 63 17 99/59 L 98 06/26/21 14:55 63 15 105/71 95 06/26/21 14:45 66 14 109/83 100 06/26/21 14:35 62 17 103/67 98 06/26/21 14:25 69 15 102/64 98 06/26/21 14:17 36.0 C L 64 16 121/77 97 06/26/21 10:30 36.6 C 62 18 161/88 H 99 Coding Level of Care Code Critical Care 1st 30-74 mins Diagnoses Admitted to intensive care unit Z78.9 Stenosis of right carotid artery I65.21 S/P carotid endarterectomy Z98.890 Time Spent (min) 32
[2021-06-26] MEDS ORDERED: OMEGA-3 (PURIFIED FISH OIL) 1 GM CAP PO SCH (21:00)
[2021-06-26] MEDS ORDERED: ADVANCED PROBIOTIC 1250 MG CAPSULE PO SCH (21:00)
[2021-06-26] MEDS ORDERED: ROSUVASTATIN CALCIUM 20 MG TAB PO SCH (21:00)
[2021-06-26] MEDS ORDERED: ASCORBIC ACID 500 MG TAB PO SCH (21:00)
[2021-06-26] MEDS ORDERED: CLOPIDOGREL BISULFATE 75 MG TAB PO SCH (21:00)
[2021-06-26] MEDS: carvediloL 12.5 MG TAB PO SCH (21:04)
[2021-06-26] MEDS: FAMOTIDINE 20 MG TAB PO SCH (21:05)
[2021-06-26] MEDS: lisinopril 20 MG TAB PO SCH (21:05)
[2021-06-27] MEDS: LACTATED RINGER'S 1,000 ML IV SCH (00:26)
[2021-06-27] MEDS: ceFAZolin 1000MG 1,000 MG/7.5 ML SYR IV SCH (03:03)
[2021-06-27 06:02] LABS: Basophils # (auto) 0.02 K/uL (0-0.2); Basophils % (auto) 0.3 %; Eosinophils # (auto) 0.07 K/uL (0-0.5); Hematocrit (blood only) 31.4 % (42-52); Hemoglobin 10.9 g/dL (14.0-18.0); Immature Granulocytes # (auto) 0.01 K/uL (0.00-0.02); Immature Granulocytes % (auto) 0.1 %; Lymphocytes # (auto) 1.08 K/uL (1.2-3.4); Lymphocytes % (auto) 15.7 %; Mean Corpuscular Hemoglobin 30.6 pg (25-34); Mean Corpuscular Hgb Conc 34.7 g/dL (32-36); Mean Corpuscular Volume 88.2 fL (80-100); Mean Platelet Volume 10.5 fL (7.4-10.4); Monocytes # (auto) 0.72 K/uL (0.11-0.59); Monocytes % (auto) 10.5 %; Neutrophils # (auto) 4.98 K/uL (1.4-6.5); Neutrophils % (auto) 72.4 %; Platelet Count 137 K/uL (130-400); RDW Coefficient of Variation 12.7 % (11.5-14.5); Red Blood Count 3.56 M/uL (4.7-6.1); White Blood Count 6.88 K/uL (4.8-10.8)
[2021-06-27 06:19] LABS: BUN Creatinine Ratio 12.5 (10-20); Creatinine Clr Calc Pharmacy 81.8 ml/min; Est GFR (African American) 101.6 ml/min; Est GFR (Non-African American) 87.6 ml/min; Magnesium 1.6 mg/dl (1.7-2.4); Phosphorus 2.9 mg/dl (2.5-4.9); Potassium 3.6 mmol/L (3.5-5.1)
[2021-06-27] MEDS: FAMOTIDINE 20 MG TAB PO SCH (07:50)
[2021-06-27] MEDS: lisinopril 20 MG TAB PO SCH (07:50)
[2021-06-27] MEDS: carvediloL 12.5 MG TAB PO SCH (07:51)
[2021-06-27] MEDS ORDERED: NON-FORMULARY MEDICATION (Coenzyme Q10 [Co Q-10] 200 mg Capsule) PO SCH (09:00)
[2021-06-27] MEDS ORDERED: hydroCHLOROthiazide 25 MG TAB PO SCH (09:00)
[2021-06-27] MEDS ORDERED: CHOLECALCIFEROL 1,000 UNITS 25 MCG TAB PO SCH (09:00)
[2021-06-27] MEDS ORDERED: amLODIPine BESYLATE 5 MG TAB PO SCH (09:00)
--- NOTE | 2021-06-27 13:18 | Surgery Progress Note ---
Date of Service June 27, 2021 Assessment & Plan (1) Stenosis of right carotid artery: Plan: Pt is POD #1 after uncomplicated R CEA. Doing well post op. Will discharge home today. Admission and Anticipated Discharge Date Admission Date: June 26, 2021 Subjective 70 yo m POD #1 after R CEA, seen in f/u today. Pt admits mild discomfort in R neck incision. Denies any other new complaints. Review of Systems Review of Systems: All systems reviewed & are unremarkable except as noted in HPI & below Physical Exam Physical Exam: Constitutional: WD/WN, vitals as above Neck: trachea midline Respiratory: normal respiratory effort, lungs clear to auscultation Cardiovascular: Rate/Rhythm: regular rate and regular rhythm Gastrointestinal (Abdomen): normal bowel sounds, soft, nontender, no hepatosplenomegaly Skin: + incision (R neck C/D/I with sutures/skin glue, mild local tenderness ecchymosis edema) Neurologic: CN's II-XI intact bilaterally, moves all extremities and awake; no focal motor deficits and not confused Psychiatric: A+Ox3, euthymic affect Results & Data ([facility]) Vital Signs (Past 12 Hours) Vital Signs Temp Pulse Pulse Resp BP BP Pulse Ox 06/27/21 09:00 84 23 06/27/21 08:00 66 21 95 06/27/21 07:59 66 23 114/62 94 06/27/21 07:58 65 22 117/66 95 06/27/21 07:00 78 15 06/27/21 06:45 62 21 06/27/21 03:00 37.1 C 69 14 101/67 96
--- NOTE | 2021-06-27 13:19 | Discharge Summary ---
Date of Service June 27, 2021 Admission HPI Per Admitting Provider Mr. Carroll is a middle-aged male who presents to vascular surgery clinic today for an annual follow-up visit regarding his history of carotid stenosis and left carotid endarterectomy which was performed in 2018. At that time, patient had unfortunately suffered a left hemispheric CVA. He recovered completely from that event. He is now seen annually for right ICA stenosis. Patient continues to deny any symptoms of cerebrovascular insufficiency, including amaurosis, extremity weakness numbness or tingling, difficulty speaking or swallowing, facial droop, sudden onset confusion, dizziness, unilateral headache, other concerns. He denies any significant changes in his health since being seen here 1 year ago. His carotid ultrasound performed prior to today's appointment demonstrates a widely patent left carotid endarterectomy site without evidence of restenosis. His right ICA demonstrates worsening stenosis with an ICA/CCA ratio of 7.7 and end-diastolic velocities of 133 which is significantly changed in comparison to his ultrasound 1 year ago. Admission Exam Per Admitting Provider Constitutional: In general patient is a healthy fit well-appearing male in no distress. Patient has no focal neurological deficits at this time. He is alert and oriented. His right carotid artery does demonstrate a significant bruit, his left demonstrates a more faint bruit. His heart is regular, his lungs are clear. His radial pulses are +3. Abdomen is benign. Principal Diagnosis 1. s/p R CEA 2. R ICA stenosis Discharge Exam Constitutional WD/WN, vitals as above Neck trachea midline Respiratory normal respiratory effort, lungs clear to auscultation Cardiovascular Rate/Rhythm: regular rate and regular rhythm Gastrointestinal (Abdomen) normal bowel sounds, soft, nontender, no hepatosplenomegaly Skin + incision (R neck C/D/I with sutures/skin glue, mild local tenderness ecchymosis edema) Neurologic CN's II-XI intact bilaterally, moves all extremities and awake; no focal motor deficits and not confused Psychiatric A+Ox3, euthymic affect Discharge Data Allergies Allergy/AdvReac Type Severity Reaction Status Date / Time No Known Allergies Allergy Verified 06/26/21 10:12 Consultations 06/26/21 20:36 Consult Fitness Coach Routine Procedures Performed Operation Date: 06/26/21 10:50 Actual Procedures p Right Carotid Endarterectomy(Right) - Milton Perez MD Hospital Course (1) Stenosis of right carotid artery: Pt is POD #1 after uncomplicated R CEA. Doing well post op. Will discha rge home today. Total Time Total Time Spent Total Time Spent (In Minutes): 0 Discharge Plan Discharge Items Patient Disposition: Home - Self-Care Reason For Visit: SEVERE RIGHT CAROTID STENOSIS Discharge Diagnosis: 1. s/p Right Carotid Endarterectomy 2. Right Internal Carotid Artery Stenosis Activity: Per Instructions section Non-emergency contact: Primary Care Provider Call non-emergency contact if: you have any medication questions, your pain is not controlled, your pain is concerning for you, you have a fever, your wound has increased redness and your wound has increased drainage Follow-up/Referrals: Frederic Lira MD [Primary Care Provider] - Milton Perez MD [Physician] - (Follow up within 2 weeks) Diet: Heart Healthy Addtl Attending Provider Instructions: SPECIAL CARE INSTRUCTIONS: Medications: * Continue to take Aspirin as directed. Incision Care: * You may shower, but do not rub incision. You may let the warm soapy water run over it. Be sure to dry the incision well after bathing. * Do not shave directly over the incision until it is healed. * DO NOT IMMERSE THE INCISION IN A TUB/POOL/etc. UNTIL HEALED. Restrictions: * Do not drive for at least one week or if you are still taking any narcotic pain medication. * Do not lift anything heavier than a gallon of milk for one week after going home. Possible Complications: * Numbness - It is normal to have some numbness around the incision. Numbness can extend beyond the incision to areas of the neck, ear and face. The numbnes s is due to bruising of nerves during the surgery and will gradually improve over a period of months. * Hoarseness/Difficulty Speaking and Swallowing - The bruising of nerves in the neck can also cause a hoarse voice, difficulty speaking or swallowing. This may improve over time, HOWEVER, if it continues for more than a few days please contact our office ([phone]). * Excessive Swelling - There will be some swelling immediately after surgery which usually resolves within one week. If you notice that the swelling is getting worse, notify your surgeon ([phone]). * Drainage/Bleeding - If there is any drainage or bleeding, it should be a very small amount (less than a teaspoon per day). If you have excessive bleeding or drainage from the incision, call your surgeon ([phone]) right away. ACTIVATION OF EMERGENCY MEDICAL SYSTEM: Call 911, immediately, if you experience any of the following: Warning Signs and Symptoms of Stroke: * Sudden numbness or weakness of the face, arm or leg, especially on one side of the body * Sudden confusion, trouble speaking or understanding * Sudden trouble seeing in one or both eyes * Sudden trouble walking, dizziness, loss of balance or coordination * Sudden severe headache with no cause Do not delay calling 911 if you experience any warning signs or symptoms of a stroke. Delay in seeking medical attention may affect what treatments can be given to you. Risk Factors for Stroke: You can reduce your chances of stroke by working with your medical provider to adopt a healthy lifestyle. Some specific ways to lower your chance of stroke are: * If you are a smoker, now is the time to stop smoking cigarettes * If you are diabetic, improve the control of your blood sugars * Avoid excessive amounts of alcohol * Control high blood pressure * Lose weight if you are overweight * Be sure to lead an active lifestyle * Eat a healthy diet low in salt, cholesterol and fat You should know about other risk factors for stroke that you are unable to control. These include: * Age 55 years or older * Male gender * Certain racial groups: , or / * Family History of Stroke, Mini stroke or Heart Attack * Sickle Cell Disease You will be receiving a call from the Vascular Surgery Nurse after you are discharged. FOLLOW UP VISIT: It is important for you to keep your follow up appointments with your medical provider. Keep any scheduled doctor appointments. Pending Studies at Discharge: No Stand-Alone Forms: My [facility], Smoking Cessation Medications and DC Order Prescriptions: Continued tadalafil [Cialis] 10 mg tablet 10 mg PO DAILY PRN (Reason: sexual activity) Qty: 30 RF: 3 rosuvastatin 40 mg tablet 40 mg PO HS Qty: 90 RF: 3 hydrochlorothiazide 25 mg tablet 25 mg PO QAM Qty: 90 RF: 3 lisinopril 20 mg tablet 20 mg PO BID Qty: 180 RF: 3 amlodipine [Norvasc] 5 mg tablet 5 mg PO QAM Qty: 90 RF: 3 carvedilol [Coreg] 12.5 mg tablet 12.5 mg PO BID Qty: 180 RF: 3 clopidogrel [Plavix] 75 mg tablet 75 mg PO HS Qty: 90 RF: 3 famotidine 20 mg tablet 20 mg PO BID Qty: 180 RF: 3 lorazepam 1 mg tablet 1 mg PO DAILY PRN (Reason: Anxiety) Qty: 30 RF: 3 omega-3 fatty acids 1,000 mg Capsule 1,000 mg PO HS RF: 0 ascorbic acid (vitamin C) [Vitamin C] 500 mg Tablet 500 mg PO QPM RF: 0 coenzyme Q10 [Co Q-10] 200 mg Capsule 200 mg PO QAM RF: 0 cholecalciferol (vitamin D3) [Vitamin D3] 50 mcg (2,000 unit) Capsule 50 mcg PO QAM RF: 0 Probiotic 15 billion cell Capsule 1 cap PO HS RF: 0 Discharge Orders: Discharge Order (Routine); Ordered 06/27/21 Ordered By: Sarah Muir Admission Data Admit Date/Time: 06/26/21 10:07 Attending Provider: Milton Perez Admit Provider: Milton Perez Primary Care Provider: Frederic Lira Other Providers: Russ Alexis
== END 2021-06-27 13:49 | disposition home or self-care (01) | DRG 39 ==
LOC: ASU 09:38 → 1E 10:07